=== PATIENT | female | born 1940 | race Caucasian/White ===

== ENCOUNTER 2017-06-28 18:48 | Emergency (ER) | payer MEDICARE, OTHER ==
[~2017-06-28] VITALS: Ht 152.4 cm; Wt 60.0 kg
[~2017-06-28 18:48] MED LIST: CALCTAB98 PO; CYMB30CA PO; FISH1000 PO; JANT5TAB2 PO; METO25 PO; NITR0.4S SL; POTA550T4 PO
[2017-06-28 18:59] VITALS: BP 134/63; PULSE 81; RESP 16; TEMP 98.5; O2SAT 96
[2017-06-28] MEDS ORDERED: GABA100C4 PO (19:35)
[2017-06-28] MEDS ORDERED: REST15CA PO (19:35)
[2017-06-28] MEDS ORDERED: META48.53 PO (19:35)
[2017-06-28] MEDS ORDERED: METO25TA3 PO (19:35)
[2017-06-28] MEDS ORDERED: MECL-62 PO (19:35)
[2017-06-28] MEDS ORDERED: SENN8.6T36 PO (19:35)
[2017-06-28] MEDS ORDERED: WARF-23 PO (19:35)
[2017-06-28] MEDS ORDERED: POLY17S PO (19:35)
[2017-06-28] MEDS ORDERED: MEMA28CA PO (19:35)
[2017-06-28] MEDS ORDERED: QUET5TAB PO (19:35)
[2017-06-28] MEDS ORDERED: NORC5TAB PO (19:35)
[2017-06-28] MEDS ORDERED: DULO1CAP2 PO (19:35)
[2017-06-28] MEDS ORDERED: NITR1SUB3 SL (19:35)
[2017-06-28 19:39] LABS: BASOPHIL % 0.7 % (0.0-2.0); EOSINOPHIL # 0.3 TH/MM3 (0-0.4); EOSINOPHIL % 5.1 % (0.0-4.0); HEMATOCRIT 39.7 % (35.0-46.0); HEMOGLOBIN 13.2 GM/DL (11.6-15.3); LYMPH % 38.2 % (9.0-44.0); LYMPHOCYTE # 2.5 TH/MM3 (1.0-4.8); MEAN CELL VOLUME 89.6 FL (80.0-100.0); MEAN CORPUSCULAR HEMOGLOBIN 29.9 PG (27.0-34.0); MEAN CORPUSCULAR HGB CONC 33.3 % (32.0-36.0); MEAN PLATELET VOLUME 9.2 FL (7.0-11.0); MONO % 10.1 % (0.0-8.0); MONOCYTE # 0.7 TH/MM3 (0-0.9); NEUT % 45.9 % (16.0-70.0); PLATELET COUNT 168 TH/MM3 (150-450); RED BLOOD COUNT 4.44 MIL/MM3 (4.00-5.30); RED CELL DISTRIBUTION WIDTH 14.2 % (11.6-17.2); WHITE BLOOD COUNT 6.6 TH/MM3 (4.0-11.0)
--- NOTE | 2017-06-28 19:44 | PD ---
HPI Chief Complaint: GI Complaint Time Seen by Provider: 19:09 Travel History International Travel<30 days: No Contact w/Intl Traveler<30days: No Traveled to known affect area: No History of Present Illness HPI Pt has pressure pain in rectal area for 4 days and thinks she has seen blood in her stool for the last 4 days .. pt reports having hard stool and it is very difficult to pass" my rectum is too small for the hard large rocks of stool. She is in a rehab for her back pain , 8 months ago she had a fall as per the sons who are bedside PFS Past Medical History Hx Anticoagulant Therapy: Yes (WARFARIN) Arthritis: Yes Asthma: No Atrial Fibrillation: Yes Autoimmune Disease: No Blood Disorders: No Depression: Yes Heart Rhythm Problems: Yes Cancer: Yes (left breast ) Cardiomyopathy: Yes Cardiovascular Problems: Yes High Cholesterol: Yes Chemotherapy: Yes Chest Pain: No Congestive Heart Failure: No COPD: Yes Cerebrovascular Accident: Yes (TIA) Diabetes: No Diminished Hearing: Yes Diverticulitis: Yes Endocrine: Yes Gastrointestinal Disorders: Yes (BLEEDING HEMORRHOIDS - GI SCOPE FOR POLOPS) GERD: No Glaucoma: No Genitourinary: No Headaches: Yes Hepatitis: No Hiatal Hernia: No Hypertension: Yes Immune Disorder: No Implanted Vascular Access Dvce: Yes Kidney Stones: No Musculoskeletal: No Neurologic: Yes (MENIERS SYNDROME, VERTIGO ) Psychiatric: Yes Reproductive: No Respiratory: Yes (copd) Immunizations Current: Yes Radiation Therapy: Yes Renal Failure: No Sleep Apnea: No Thyroid Disease: No Ulcer: No Influenza Vaccination: Yes Menopausal: Yes : 6 Para: 6 Ectopic : Yes Past Surgical History Abdominal Surgery: Yes AICD: Yes Appendectomy: Yes Body Medical Devices: PACEMAKER Cardiac Surgery: Yes (pacemaker medtronic duel 03/22/16) Cholecystectomy: Yes Ear Surgery: No Endocrine Surgery: No Eye Surgery: Yes (LEFT EYE) Genitourinary Surgery: No Gynecologic Surgery: Yes Hysterectomy: Yes Neurologic Surgery: Yes (VEIN STRIPPING BI LAT LOWER EXTREM.) Oral Surgery: Yes (TEETH EXTRACTED) Pacemaker: Yes Thoracic Surgery: No Tonsillectomy: Yes Valve Replacement: Yes (REPAIR 06/2013) Other Surgery: Yes (lymphectomy; pacemaker) Social History Alcohol Use: No Tobacco Use: No Substance Use: No Allergies-Medications (Allergen,Severity, Reaction): Coded Allergies: codeine (Unverified Allergy, Severe, HEADACHE, 06/28/17) iodine (Unverified Allergy, Severe, MERTHIOLATE = RASH, 06/28/17) morphine (Unverified Allergy, Severe, HEART RATE DROPS, 06/28/17) potassium iodide (Unverified Allergy, Severe, MERTHIOLATE = RASH, 06/28/17 ) povidone-iodine (Unverified Allergy, Severe, MERTHIOLATE = RASH, 06/28/17) sodium iodide (Unverified Allergy, Severe, MERTHIOLATE = RASH, 06/28/17) sodium iodide (Unverified Allergy, Severe, MERTHIOLATE = RASH, 06/28/17) *MDRO Multi-Drug Resistant Organism (Verified Allergy, Unknown, 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/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 carvedilol (Unverified Allergy, Unknown, 06/28/17) enalaprilat (Unverified Allergy, Unknown, 06/28/17) procaine (Unverified Allergy, Unknown, 06/28/17) MRI PRECAUTION (Verified Adverse Reaction, Severe, PACEMAKER 06/28/17 AW, 06/28/17) MEDTRONIC PACEMAKER 06/28/17 AW Sulfa (Sulfonamide Antibiotics) (Unverified Adverse Reaction, Severe, NAUSEA/VOMITING, 06/28/17) Uncoded Allergies: METHIOLATE (Allergy, Severe, RASH, 09/13/10) Reported Meds & Prescriptions Reported Meds & Active Scripts Active Reported [place] (Hydrocodone-Acetaminophen) 5 Mg-325 Mg Tab 1 Tab PO Q6H PRN Meclizine (Meclizine HCl) 25 Mg Tab 25 Mg PO TID PRN Nitroglycerin SL (Nitroglycerin) 0.4 Mg Subl 0.4 Mg SL DIRECTED PRN ONE TABLET UNDER THE TONGUE NEEDED FOR CHEST PAIN, MAY REPEAT EVERY FIVE MINUTES FOR A TOTAL OF 3 DOSES OR CALL 911 IF NO RELIEF Gabapentin 100 Mg Cap 100 Mg PO TID Duloxetine DR (Duloxetine HCl) 30 Mg Capdr 30 Mg PO BID Restoril (Temazepam) 15 Mg Cap 15 Mg PO HS PRN Quetiapine (Quetiapine Fumarate) 50 Mg Tab 50 Mg PO HS Metamucil Original Texture (Psyllium Hydrophilic Mucilloid) 3.4 Gram/7 Gram Pow 1 Scoop PO DAILY PRN 1 rounded TEASPOON in 8 oz of liquid at the first sign of irregularity. Warfarin 5 Mg Tab 5 Mg PO DAILY Metoprolol Tartrate 25 Mg Tab 12.5 Mg PO DAILY Namenda Xr (Memantine) 28 Mg Caper 28 Mg PO DAILY Senna-Tabs (Sennosides) 8.6 Mg Tab 8.6 Mg PO DAILY Polyethylene Glycol 3350 Powder (Polyethylene Glycol) 17 Gram Pow 17 Gm PO DAILY Review of Systems Except as stated in HPI: all other systems reviewed are Neg Gastrointestinal: Positive: Hematochezia (pressure in her lower back rectum 4 days), Changes in Bowel Habits Physical Exam Narrative GENERAL: non toxic normal vitals and not pale doesnt seem anemic SKIN: Warm and dry. HEAD: Atraumatic. Normocephalic. EYES: Pupils equal and round. No scleral icterus. No injection or drainage. ENT: No nasal bleeding or discharge. Mucous membranes pink and moist. NECK: Trachea midline. No JVD. CARDIOVASCULAR: Regular rate and rhythm. RESPIRATORY: No accessory muscle use. Clear to auscultation. Breath sounds equal bilaterally. GASTROINTESTINAL: Abdomen LLQ tenderness soft, , nondistended. Hepatic and splenic margins not palpable. MUSCULOSKELETAL:BACK PAIN L-Spine with palpation of L 2 area NEUROLOGICAL: Awake and alert. No obvious cranial nerve deficits. Motor grossly within normal limits. Five out of 5 muscle strength in the arms and legs. Normal speech. PSYCHIATRIC: Appropriate mood and affect; insight and judgment normal. RECTAL exam Brown stool minimal stool in her vault no hard stool found guiac postive. nontender exam Data Data Last Documented VS Vital Signs Date Time Temp Pulse Resp B/P (MAP) Pulse Ox O2 Delivery O2 Flow Rate FiO2 06/28/17 21:38 81 18 130/64 (86) 97 Room Air 06/28/17 18:59 98.5 Orders Orders Complete Blood Count With Diff (06/28/17 19:09) Comprehensive Metabolic Panel (06/28/17 19:09) Prothrombin Time / Inr (Pt) (06/28/17 19:09) Lipase (06/28/17 19:09) Ct Abd/Pel W/O Iv Contrast (06/28/17 ) Ct Lumb Spine W/O Contrast (06/28/17 ) Mri L Spine W/O Contrast (06/28/17 ) Ed Discharge Order (06/28/17 21:08) Labs Laboratory Tests Test 06/28/17 19:10 White Blood Count 6.6 TH/MM3 Red Blood Count 4.44 MIL/MM3 Hemoglobin 13.2 GM/DL Hematocrit 39.7 % Mean Corpuscular Volume 89.6 FL Mean Corpuscular Hemoglobin 29.9 PG Mean Corpuscular Hemoglobin Concent 33.3 % Red Cell Distribution Width 14.2 % Platelet Count 168 TH/MM3 Mean Platelet Volume 9.2 FL Neutrophils (%) (Auto) 45.9 % Lymphocytes (%) (Auto) 38.2 % Monocytes (%) (Auto) 10.1 % Eosinophils (%) (Auto) 5.1 % Basophils (%) (Auto) 0.7 % Neutrophils # (Auto) 3.0 TH/MM3 Lymphocytes # (Auto) 2.5 TH/MM3 Monocytes # (Auto) 0.7 TH/MM3 Eosinophils # (Auto) 0.3 TH/MM3 Basophils # (Auto) 0.0 TH/MM3 CBC Comment DIFF FINAL Differential Comment Prothrombin Time 20.6 SEC Prothromb Time International Ratio 2.0 RATIO Blood Urea Nitrogen 13 MG/DL Creatinine 0.85 MG/DL Random Glucose 125 MG/DL Total Protein 7.5 GM/DL Albumin 3.4 GM/DL Calcium Level 8.2 MG/DL Alkaline Phosphatase 85 U/L Aspartate Amino Transf (AST/SGOT) 34 U/L Alanine Aminotransferase (ALT/SGPT) 24 U/L Total Bilirubin 0.3 MG/DL Sodium Level 137 MEQ/L Potassium Level 4.2 MEQ/L Chloride Level 104 MEQ/L Carbon Dioxide Level 25.0 MEQ/L Anion Gap 8 MEQ/L Estimat Glomerular Filtration Rate 65 ML/MIN Lipase 552 U/L [facility] Medical Decision Making Medical Screen Exam Complete: Yes Emergency Medical Condition: Yes Differential Diagnosis hemorrhoids vs colitis diverticulosis , internal hemorrhoids , ulcer bleeding stomach, other Narrative Course CT of her lumbar spine shows ...L1 compression fracture with retropulsion into the spinal canal 20% of the canal is affected by the retropulsed bone. She has a pacemaker she cannot have an MRI she is on hydrocodone at the senior living for this. I told sons to continue follow-up with NS . I will give report of the MRI to them to show to the neurosurgeon at the senior living Diagnosis Primary Impression: Compressed spine fracture Qualified Codes: M48.50XA - Collapsed vertebra, not elsewhere classified, site unspecified, initial encounter for fracture Patient Instructions: General Instructions, Vertebral Compression Fracture (ED) Disposition: 01 DISCHARGE HOME Lowell Cash MD Jun 28, 2017 19:44
[2017-06-28 19:47] LABS: PROTHROMBIN TIME - PATIENT 20.6 SEC (9.8-11.6)
[2017-06-28 19:56] LABS: ALT (GPT) 24 U/L (10-53)
[2017-06-28 19:59] LABS: ALBUMIN 3.4 GM/DL (3.4-5.0); ALKALINE PHOSPHATASE 85 U/L (45-117); AST (GOT) 34 U/L (15-37); BLOOD UREA NITROGEN 13 MG/DL (7-18); CALCIUM 8.2 MG/DL (8.5-10.1); CHLORIDE 104 MEQ/L (98-107); CREATININE 0.85 MG/DL (0.50-1.00); GLOMERULAR FILTRATION RATE 65 ML/MIN (>89); GLUCOSE,RANDOM 125 MG/DL (74-106); LIPASE 552 U/L (73-393); SODIUM (NA) 137 MEQ/L (136-145); TOTAL BILIRUBIN ADULT 0.3 MG/DL (0.2-1.0); TOTAL PROTEIN 7.5 GM/DL (6.4-8.2)
--- NOTE | 2017-06-28 20:24 | RADRPT ---
EXAM DATE/TIME: 06/28/2017 19:58 [facility] COMPARISON: No previous studies available for comparison. INDICATIONS : Rectal bleeding for two days. ORAL CONTRAST: No oral contrast ingested. RADIATION DOSE: CTDIvol (mGy) MEDICAL HISTORY : Cardiovascular disease. Cerebrovascular disease. Carcinoma, breast. SURGICAL HISTORY : Appendectomy. Cholecystectomy.Hysterectomy. ENCOUNTER: Initial ACUITY: 2 days PAIN SCALE: 2/10 LOCATION: abdomen TECHNIQUE: Volumetric scanning of the abdomen and pelvis was performed. Using automated exposure control and ad justment of the mA and/or kV according to patient size, radiation dose was kept as low as reasonably achievable to obtain optimal diagnostic quality images. DICOM format image data is available electro nically for review and comparison. FINDINGS: Focal airspace disease noted in left lower lobe. No effusion. Cardiomegaly. No acute findings in the liver, adrenals, kidneys or pancreas. Previous cholecystectomy. No free fluid or free air. No bowel obstruction. Mild constipation. Colonic diverticulosis without di verticulitis. CONCLUSION: 1. Colonic diverticulosis without evidence for diverticulitis. 2. Postoperative cholecystectomy. No bowel obstruction, free air or free fluid. 3. Focal airspace disease left lower lobe. Cliff Adams MD on June 28, 2017 at 20:19 Board Certified Radiologist. This report was verified electronically.
--- NOTE | 2017-06-28 20:27 | RADRPT ---
EXAM DATE/TIME: 06/28/2017 19:58 [facility] COMPARISON: No previous studies available for comparison. INDICATIONS : Back pain for two days RADIATION DOSE: ; Reconstructed from previous dataset, no dose MEDICAL HISTORY : Cardiovascular disease. Cerebrovascular disease. Carcinoma, breast. SURGICAL HISTORY : Appendectomy. Cholecystectomy.Pacemaker. ENCOUNTER: Initial ACUITY: 2 days PAIN SCALE: 10/10 LOCATION: low back TECHNIQUE: Volumetric scanning of the lumbar spine was performed. Multiplanar reconstructions in the sagittal, coronal and oblique axial planes were performed. Using automated exposure control and adjustment of the mA and/or kV according to patient size, radiation dose was kept as low as reasonably achievable t o obtain optimal diagnostic quality images. DICOM format image data is available electronically for review and comparison. FINDINGS: There is a moderate compression fracture of L1 vertebral body with mild retropulsion superiorly compr omising about 20% canal diameter. No subluxation. No other fractures identified. No significant centr al canal stenosis within the lumbar spine. Bones appear osteopenic. CONCLUSION: 1. Moderate compression fracture of L1 with mild retropulsion. No subluxation. 2. Grade 1 anterolisthesis of L5 on S1, likely degenerative. Cliff Adams MD on June 28, 2017 at 20:22 Board Certified Radiologist. This report was verified electronically.
[2017-06-28 21:38] VITALS: BP 130/64; PULSE 81; RESP 18; O2SAT 97
== END 2017-06-28 21:39 | disposition home or self-care (01) ==
LOC: NEPE 18:48
DX: M48.56XA Collapsed vertebra, not elsewhere classified, lumbar region, initial encounter for fracture (principal); I10 Essential (primary) hypertension; I48.91 Unspecified atrial fibrillation; Z79.01 Long term (current) use of anticoagulants
CPT/HCPCS: 72131; 74176; 80053; 83690; 85025; 85610; 99285

== ENCOUNTER 2017-07-25 01:22 | Inpatient (IN) | payer MEDICARE, OTHER ==
[2017-07-25] VITALS (10 sets, daily range): BP systolic 111–136; BP diastolic 54–83; PULSE 59–65; RESP 16–26; TEMP 97.8–101.9; O2SAT 95–99
[~2017-07-25] VITALS: Ht 165.1 cm; Wt 65.0 kg
[~2017-07-25 01:22] MED LIST changes: -CALCTAB98 PO; -CYMB30CA PO; +DULO1CAP2 PO; -FISH1000 PO; +GABA100C4 PO; -JANT5TAB2 PO; +MECL-62 PO; +MEMA28CA PO; +META48.53 PO; -METO25 PO; +METO25TA3 PO; -NITR0.4S SL; +NITR1SUB3 SL; +NORC5TAB PO; +POLY17S PO; -POTA550T4 PO; +QUET5TAB PO; +REST15CA PO; +SENN8.6T36 PO; +WARF-23 PO
--- NOTE | 2017-07-25 01:43 | PD ---
HPI Chief Complaint: Altered Mental Status Time Seen by Provider: 01:34 Travel History International Travel<30 days: No Contact w/Intl Traveler<30days: No Traveled to known affect area: No History of Present Illness HPI The patient is a 76 year old female who presents to the [facility] emergency department with a history of altered mentation noted by her penitentiary prior to arrival. The patient was last seen normal around 9:30 PM. The patient received her usual dose of [place] and Restoril at that time. The patient 's vital signs were all within normal limits at that time with an O2 saturation on room air of 96%. When they went to check on the patient at approximately 12: 30 AM the patient had O2 saturations of 88% and was difficult to arouse. The patient reportedly has a history of dementia and is usually oriented to person only. The patient was placed on 3 L nasal cannula O2. When ambulance services arrived the patient's O2 saturations had improved to 98%. They report that they did check capnography on the patient and her CO2 was 36. The patient is able to follow commands when she is awakened, however she is extremely drowsy with upper airway congested sounds noted on exam. No other history is able to be obtained from the patient. The patient's history is obtained from reviewing the electronic medical record and the penitentiary record. The patient's blood sugar prior to arrival by ambulance services was noted to be 93. The patient's family on arrival reports that she has had rhinorrhea, cough, congestion over the last few days. PFS Past Medical History Narrative Medical The patient's past medical history is significant for coronary artery disease, atrial fibrillation chronically anticoagulated on Coumadin, history of AICD and pacemaker placement, history of hypothyroid disorder, depression, acid reflux, migraine headaches, hypertension, prior history of cerebrovascular accident, history of dementia. Hx Anticoagulant Therapy: Yes (WARFARIN) Arthritis: Yes Asthma: No Atrial Fibrillation: Yes Autoimmune Disease: No Blood Disorders: No Depression: Yes Heart Rhythm Problems: Yes Cancer: Yes (left breast ) Cardiomyopathy: Yes Cardiovascular Problems: Yes High Cholesterol: Yes Chemotherapy: Yes Chest Pain: No Congestive Heart Failure: No COPD: Yes Cerebrovascular Accident: Yes (TIA) Diabetes: No Diminished Hearing: Yes Diverticulitis: Yes Endocrine: Yes Gastrointestinal Disorders: Yes (BLEEDING HEMORRHOIDS - GI SCOPE FOR POLOPS) GERD: No Glaucoma: No Genitourinary: No Headaches: Yes Hepatitis: No Hiatal Hernia: No Hypertension: Yes Immune Disorder: No Implanted Vascular Access Dvce: Yes Kidney Stones: No Musculoskeletal: No Neurologic: Yes (MENIERS SYNDROME, VERTIGO ) Psychiatric: Yes Reproductive: No Respiratory: Yes (copd) Immunizations Current: Yes Radiation Therapy: Yes Renal Failure: No Sleep Apnea: No Thyroid Disease: No Ulcer: No Menopausal: Yes : 6 Para: 6 Ectopic : Yes Past Surgical History Narrative Surgical The patient's past surgical history is significant for mitral valve replacement , pacemaker placement, AICD placement, hysterectomy, bilateral vein stripping, left eye surgery, cholecystectomy. Abdominal Surgery: Yes AICD: Yes Appendectomy: Yes Body Medical Devices: PACEMAKER Cardiac Surgery: Yes (pacemaker medtronic duel 03/22/16) Cholecystectomy: Yes Ear Surgery: No Endocrine Surgery: No Eye Surgery: Yes (LEFT EYE) Genitourinary Surgery: No Gynecologic Surgery: Yes Hysterectomy: Yes Neurologic Surgery: Yes (VEIN STRIPPING BI LAT LOWER EXTREM.) Oral Surgery: Yes (TEETH EXTRACTED) Pacemaker: Yes Thoracic Surgery: No Tonsillectomy: Yes Valve Replacement: Yes (REPAIR 06/2013) Other Surgery: Yes (lymphectomy; pacemaker) Social History Alcohol Use: No Tobacco Use: No Substance Use: No Allergies-Medications (Allergen,Severity, Reaction): Coded Allergies: codeine (Unverified Allergy, Severe, HEADACHE, 07/25/17) iodine (Unverified Allergy, Severe, MERTHIOLATE = RASH, 07/25/17) morphine (Unverified Allergy, Severe, HEART RATE DROPS, 07/25/17) potassium iodide (Unverified Allergy, Severe, MERTHIOLATE = RASH, 07/25/17) povidone-iodine (Unverified Allergy, Severe, MERTHIOLATE = RASH, 07/25/17) sodium iodide (Unverified Allergy, Severe, MERTHIOLATE = RASH, 07/25/17) sodium iodide (Unverified Allergy, Severe, MERTHIOLATE = RASH, 07/25/17) *MDRO Multi-Drug Resistant Organism (Verified Allergy, Unknown, 07/25/17) MRSA carvedilol (Unverified Allergy, Unknown, 07/25/17) enalaprilat (Unverified Allergy, Unknown, 07/25/17) procaine (Unverified Allergy, Unknown, 07/25/17) MRI PRECAUTION (Verified Adverse Reaction, Severe, PACEMAKER 06/28/17 AW, 07/25/17) MEDTRONIC PACEMAKER 06/28/17 AW Sulfa (Sulfonamide Antibiotics) (Unverified Adverse Reaction, Severe, NAUSEA/VOMITING, 07/25/17) Uncoded Allergies: METHIOLATE (Allergy, Severe, RASH, 09/13/10) Reported Meds & Prescriptions Reported Meds & Active Scripts Active Reported [place] (Hydrocodone-Acetaminophen) 5 Mg-325 Mg Tab 1 Tab PO Q6H PRN Meclizine (Meclizine HCl) 25 Mg Tab 25 Mg PO TID PRN Nitroglycerin SL (Nitroglycerin) 0.4 Mg Subl 0.4 Mg SL DIRECTED PRN ONE TABLET UNDER THE TONGUE NEEDED FOR CHEST PAIN, MAY REPEAT EVERY FIVE MINUTES FOR A TOTAL OF 3 DOSES OR CALL 911 IF NO RELIEF Gabapentin 100 Mg Cap 100 Mg PO TID Duloxetine DR (Duloxetine HCl) 30 Mg Capdr 30 Mg PO BID Restoril (Temazepam) 15 Mg Cap 15 Mg PO HS PRN Quetiapine (Quetiapine Fumarate) 50 Mg Tab 50 Mg PO HS Metamucil Original Texture (Psyllium Hydrophilic Mucilloid) 3.4 Gram/7 Gram Pow 1 Scoop PO DAILY PRN 1 rounded TEASPOON in 8 oz of liquid at the first sign of irregularity. Warfarin 5 Mg Tab 5 Mg PO DAILY Metoprolol Tartrate 25 Mg Tab 12.5 Mg PO DAILY Namenda Xr (Memantine) 28 Mg Caper 28 Mg PO DAILY Senna-Tabs (Sennosides) 8.6 Mg Tab 8.6 Mg PO DAILY Polyethylene Glycol 3350 Powder (Polyethylene Glycol) 17 Gram Pow 17 Gm PO DAILY Review of Systems ROS Limitations: Altered Mental Status, Poor Historian HENT: Positive: Rhinorrhea, Congestion Respiratory: Positive: Cough Neurologic: Positive: Change in Mentation Physical Exam Narrative General: The patient is well-developed well-nourished female, sleeping soundly on arrival , otherwise in no acute distress. Head and Neck exam: Head is normocephalic atraumatic. Eyes: Pupils are 2 mm and reactive to light, extra ocular motion testing is unable to be accomplished in this patient who is not able to follow complex commands. Nose: Midline septum with pink mucous membranes Mouth: Dentition unremarkable. Moist mucus membranes. Posterior oropharynx is not erythematous. No tonsillar hypertrophy. Uvula midline. Airway patent. Neck: No palpable lymphadenopathy. No nuchal rigidity. No thyromegaly. Cardiovascular: Regular rate and rhythm without murmurs, gallops, or rubs. Lungs: The patient has a significant amount of congestion in the upper airway with upper airway transmission and scattered rhonchi audible in bilateral lung pineda with occasional productive sounding cough. Abdomen: Soft, without tenderness to palpation in all 4 quadrants of the abdomen. No guarding, rebound, or rigidity. Normal bowel sounds are audible. No tenderness on palpation of McBurney's point. Negative Mccormick sign. Extremities: No clubbing, cyanosis, or edema. 2+ pulses in all 4 extremities. No calf tenderness on palpation. Back: No costovertebral angle tenderness to palpation. Neurologic Exam: The patient is extremely drowsy on examination, however she is able to be awakened for a few seconds at a time with tactile stimulation. The patient is able to follow commands and squeeze with her hands bilaterally. The patient is also able to move both feet with stimulation. The patient has no evidence of facial asymmetry. A formal neurologic examination is limited to this based on the patient's level of sedation. Skin Exam: No rash noted. Intact skin that is warm and dry. Data Data Last Documented VS Vital Signs Date Time Temp Pulse Resp B/P (MAP) Pulse Ox O2 Delivery O2 Flow Rate FiO2 07/25/17 01:35 94 07/25/17 01:33 60 18 120/56 (77) Room Air 07/25/17 01:30 98.1 Orders Orders Electrocardiogram (07/25/17 01:34) Complete Blood Count With Diff (07/25/17 01:34) Comprehensive Metabolic Panel (07/25/17 01:34) Creatine Kinase (Cpk) (07/25/17 01:34) Ckmb (Isoenzyme) Profile (07/25/17:34) Troponin I (07/25/17:34) B-Type Natriuretic Peptide (07/25/17 01:34) Prothrombin Time / Inr (Pt) (07/25/17:34) Act Partial Throm Time (Ptt) (07/25/17:34) C-Reactive Protein (Crp) (07/25/17 01:34) Lipase (07/25/17 01:34) Urinalysis - C+S If Indicated (07/25/17 01:34) Cath For Specimen (07/25/17 01:34) Magnesium (Mg) (07/25/17 01:34) Ammonia (07/25/17 01:34) Thyroid Stimulating Hormone (07/25/17 01:34) Chest, Single Ap (07/25/17 01:34) Ct Brain W/O Iv Contrast(Rout) (07/25/17 01:34) Iv Access Insert/Monitor (07/25/17 01:34) Ecg Monitoring (07/25/17 01:34) Oximetry (07/25/17 01:34) Drug Screen, Random Urine (07/25/17 01:34) Alcohol (Ethanol) (07/25/17 01:34) Urine Culture (07/25/17 01:56) Influenzae A/B Antigen (07/25/17 03:43) Place In Observation (07/25/17 ) Vital Signs (Adult) Q4H (07/25/17 04:07) Neuro Checks Q4H (07/25/17 04:07) Activity Oob With Assistance (07/25/17 04:07) Residential Treatment Staff / Telemetry .CONTINUOUS (07/25/17 04:07) Diet Npo (07/25/17 Breakfast) Sodium Chloride 0.9% Flush (Ns Flush) (07/25/17 04:15) Sodium Chloride 0.9% Flush (Ns Flush) (07/25/17 09:00) Basic Metabolic Panel (Bmp) (07/26/17 06:00) Complete Blood Count With Diff (07/26/17 06:00) Resp Oxygen Steve C Titrat 1-4 L (07/25/17 ) Pt Request For Service (07/25/17 04:07) Case Management Consult (07/25/17 04:07) Naloxone Inj (Narcan Inj) (07/25/17 04:15) Speech Therapy Consult-Eval/Tx (07/25/17 04:07) Ct Thorax/ Chest Wo Iv Contras (07/25/17 ) Admit Order (Ed Use Only) (07/25/17 04:17) Labs Laboratory Tests Test 07/25/17 01:46 07/25/17 01:56 White Blood Count 5.1 TH/MM3 Red Blood Count 4.25 MIL/MM3 Hemoglobin 12.8 GM/DL Hematocrit 38.2 % Mean Corpuscular Volume 90.0 FL Mean Corpuscular Hemoglobin 30.2 PG Mean Corpuscular Hemoglobin Concent 33.6 % Red Cell Distribution Width 13.2 % Platelet Count 101 TH/MM3 Mean Platelet Volume 9.2 FL Neutrophils (%) (Auto) 45.9 % Lymphocytes (%) (Auto) 45.7 % Monocytes (%) (Auto) 7.4 % Eosinophils (%) (Auto) 0.8 % Basophils (%) (Auto) 0.2 % Neutrophils # (Auto) 2.3 TH/MM3 Lymphocytes # (Auto) 2.3 TH/MM3 Monocytes # (Auto) 0.4 TH/MM3 Eosinophils # (Auto) 0.0 TH/MM3 Basophils # (Auto) 0.0 TH/MM3 CBC Comment DIFF FINAL Differential Comment Prothrombin Time 37.3 SEC Prothromb Time International Ratio 3.7 RATIO Activated Partial Thromboplast Time 52.1 SEC Blood Urea Nitrogen 11 MG/DL Creatinine 0.70 MG/DL Random Glucose 92 MG/DL Total Protein 6.5 GM/DL Albumin 3.0 GM/DL Calcium Level 7.9 MG/DL Magnesium Level 2.1 MG/DL Alkaline Phosphatase 165 U/L Aspartate Amino Transf (AST/SGOT) 256 U/L Alanine Aminotransferase (ALT/SGPT) 104 U/L Total Bilirubin 1.1 MG/DL Sodium Level 139 MEQ/L Potassium Level 3.5 MEQ/L Chloride Level 104 MEQ/L Carbon Dioxide Level 28.3 MEQ/L Anion Gap 7 MEQ/L Estimat Glomerular Filtration Rate 82 ML/MIN Ammonia 11 MCMOL/L Total Creatine Kinase 92 U/L Troponin I LESS THAN 0.02 NG/ML C-Reactive Protein 6.81 MG/DL B-Type Natriuretic Peptide 98 PG/ML Lipase 172 U/L Thyroid Stimulating Hormone 3rd Gen 0.917 uIU/ML Ethyl Alcohol Level LESS THAN 3 MG/DL Urine Color YELLOW Urine Turbidity CLEAR Urine pH 6.0 Urine Specific Serena 1.020 Urine Protein TRACE mg/dL Urine Glucose (UA) NEG mg/dL Urine Ketones TRACE mg/dL Urine Occult Blood NEG Urine Nitrite POS Urine Bilirubin NEG Urine Urobilinogen LESS THAN 2.0 MG/DL Urine Leukocyte Esterase SMALL Urine RBC 3 /hpf Urine WBC 5 /hpf Urine Bacteria OCC /hpf Urine Hyaline Casts 16 /lpf Urine Mucus FEW /lpf Microscopic Urinalysis Comment CULTURE INDICATED Urine Opiates Screen POS Urine Barbiturates Screen NEG Urine Amphetamines Screen NEG Urine Benzodiazepines Screen NEG Urine Cocaine Screen NEG Urine Cannabinoids Screen NEG MDM Medical Decision Making Medical Screen Exam Complete: Yes Emergency Medical Condition: Yes Medical Record Reviewed: Yes Interpretation(s) Last Impressions Head CT 07/25/17133 Signed Impressions: Service Date/Time: Tuesday, July 25, 2017 02:03 - CONCLUSION: 1. No evidence of acute intracranial pathology. Chronic ischemic changes as above. 2. Sinus disease as above Ezequiel Ordoñez MD Chest X-Ray 07/25/17133 Signed Impressions: Service Date/Time: Tuesday, July 25, 2017 02:01 - CONCLUSION: 1. Cardiomegaly. No acute pulmonary disease. Ezequiel Ordoñez MD Differential Diagnosis Altered mentation related to medication side effects and sedation, versus intracranial abnormality, versus sepsis related encephalopathy, versus hypercapnia, versus aspiration, versus influenza Narrative Course During the course of the patients emergency department visit, the patient was placed on a bus steward with oximetry and frequent blood pressure monitoring. The patient had IV access obtained and blood work sent for analysis. The patient had an EKG done on arrival that shows an electronic ventricular paced rhythm heart rate of 60, no other acute abnormality. The patient was initially provided normal saline at 250 milliliters bolus 1. The patients laboratory studies were reviewed and remarkable for a white count of 5.1, hemoglobin 12.8, platelets 101 with 45.7 and lymphocytes, CMP is remarkable for a GFR of 82, total bilirubin 1.1, AST 256, ALT 104, alkaline phosphatase 165 with an ammonia level of the left, CPK 92, troponin I less than 0.02, C-reactive protein is 6.81, albumin 3.0, lipase 172, TSH 0.917, BNP is 98 , INR 3.7, urinalysis shows trace ketones positive nitrite and leukocyte Estrace occasional bacteria, culture indicated. The patient's liver enzyme elevation is noted to be new compared to her prior liver function tests in June 2017. According to the record the patient has had a cholecystectomy. Radiology studies were reviewed and remarkable for a chest x-ray that shows cardiomegaly, no acute pulmonary disease. CT scan of the brain shows no evidence of acute intracranial pathology, chronic ischemic changes, sinus disease. The patients results were discussed with the patient, including the plan of care. I explained that further testing and/ or monitoring is indicated based on the patients history, examination, and/ or laboratory findings. Therefore, I recommended admission for additional evaluation. The patient expressed understanding and was agreeable with this plan. The patient was admitted to the hospital in guarded condition and sent to a bed under the care of the [facility] service. Physician Communication Physician Communication The patient's case including history, pertinent physical examination findings, and laboratory studies were discussed with Dr. Ferrari. It was agreed that the patient would be admitted to the [facility] service. Diagnosis Primary Impression: Altered mental status Qualified Codes: R40.0 - Somnolence Additional Impression: Urinary tract infection Qualified Codes: N39.0 - Urinary tract infection, site not specified Admitting Information Admitting Physician Requests: Gina Hernandez MD Jul 25, 2017 01:43
[2017-07-25 02:08] LABS: AUTOMATED NEUTROPHIL # 2.3 TH/MM3 (1.8-7.7); BASOPHIL % 0.2 % (0.0-2.0); EOSINOPHIL % 0.8 % (0.0-4.0); HEMATOCRIT 38.2 % (35.0-46.0); HEMOGLOBIN 12.8 GM/DL (11.6-15.3); LYMPH % 45.7 % (9.0-44.0); LYMPHOCYTE # 2.3 TH/MM3 (1.0-4.8); MEAN CORPUSCULAR HEMOGLOBIN 30.2 PG (27.0-34.0); MEAN CORPUSCULAR HGB CONC 33.6 % (32.0-36.0); MEAN PLATELET VOLUME 9.2 FL (7.0-11.0); MONO % 7.4 % (0.0-8.0); MONOCYTE # 0.4 TH/MM3 (0-0.9); NEUT % 45.9 % (16.0-70.0); PLATELET COUNT 101 TH/MM3 (150-450); RED BLOOD COUNT 4.25 MIL/MM3 (4.00-5.30); RED CELL DISTRIBUTION WIDTH 13.2 % (11.6-17.2); WHITE BLOOD COUNT 5.1 TH/MM3 (4.0-11.0)
[2017-07-25 02:11] LABS: BACTERIA, URINE OCC /hpf; BILIRUBIN, URINE NEG (NEG); BLOOD, URINE NEG (NEG); GLUCOSE,URINE NEG (NEG); HYALINE CAST, URINE 16 /lpf (RARE); KETONE, URINE TRACE mg/dL (NEG); MUCUS URINE FEW /lpf (OCC); NITRITE,URINE POS (NEG); URINE COLOR YELLOW (YELLW/STRAW); URINE LEUKOCYTE ESTERASE SMALL (NEG)
[2017-07-25 02:22] LABS: INTERNATIONAL NORMALIZED RATIO 3.7 RATIO; PROTHROMBIN TIME - PATIENT 37.3 SEC (9.8-11.6)
[2017-07-25 02:25] LABS: ALT (GPT) 104 U/L (10-53); AST (GOT) 256 U/L (15-37); BICARBONATE 28.3 MEQ/L (21.0-32.0); BLOOD UREA NITROGEN 11 MG/DL (7-18); CALCIUM 7.9 MG/DL (8.5-10.1); CHLORIDE 104 MEQ/L (98-107); GLOMERULAR FILTRATION RATE 82 ML/MIN (>89); GLUCOSE,RANDOM 92 MG/DL (74-106); LIPASE 172 U/L (73-393); MAGNESIUM 2.1 MG/DL (1.5-2.5); SODIUM (NA) 139 MEQ/L (136-145)
[2017-07-25 02:34] LABS: ALKALINE PHOSPHATASE 165 U/L (45-117); C-REACTIVE PROTEIN 6.81 MG/DL (0.00-0.30); TOTAL BILIRUBIN ADULT 1.1 MG/DL (0.2-1.0); TOTAL PROTEIN 6.5 GM/DL (6.4-8.2); TROPONIN I LESS THAN 0.02 NG/ML (0.02-0.05)
--- NOTE | 2017-07-25 02:41 | RADRPT ---
EXAM DATE/TIME: 07/25/2017 02:01 [facility] COMPARISON: CHEST SINGLE AP, March 27, 2016, 21:44. INDICATIONS : Cough. MEDICAL HISTORY : Cardiovascular disease. Cerebrovascular disease. Carcinoma, breast SURGICAL HISTORY : CABG. Pacemaker. Appendectomy. Cholecystectomy.Hysterectomy ENCOUNTER: Initial ACUITY: 1 day PAIN SCORE: 0/10 LOCATION: Bilateral chest FINDINGS: The cardiac silhouette is normal in transverse diameter. Median sternotomy wires are present. A prost hetic mitral valve is in place. A defibrillator device is in place via a right sided approach. The shelly ngs are free of acute parenchymal opacity. No effusions are identified. CONCLUSION: 1. Cardiomegaly. No acute pulmonary disease. Ezequiel Ordoñez MD on July 25, 2017 at 2:39 Board Certified Radiologist. This report was verified electronically.
--- NOTE | 2017-07-25 02:45 | RADRPT ---
EXAM DATE/TIME: 07/25/2017 02:03 [facility] COMPARISON: CT BRAIN W/O CONTRAST, January 01, 2016, 15:10. INDICATIONS : Altered mental status. RADIATION DOSE: 69.15 CTDIvol (mGy) MEDICAL HISTORY : Hypertension. Carcinoma, breast. Chronic obstructive pulmonary disease.TIA. SURGICAL HISTORY : Pacemaker. ENCOUNTER: Initial ACUITY: 1 day PAIN SCALE: 0/10 LOCATION: cranial TECHNIQUE: Multiple contiguous axial images were obtained of the head. Using automated exposure control and adj ustment of the mA and/or kV according to patient size, radiation dose was kept as low as reasonably a chievable to obtain optimal diagnostic quality images. DICOM format image data is available electro nically for review and comparison. FINDINGS: Noncontrast axial head CT demonstrates the ventricles to be normal in size and configuration with a n ormal sulcal pattern. No acute intracranial hemorrhage, acute cortical infarction, mass or midline sh ift is seen. There is periventricular hypodensity compatible with chronic ischemic change slightly mo re than expected for patient this age. Air-fluid levels in the sphenoid sinus and left maxillary sinu s. Posterior fossa structures are unremarkable. Bone windows are unremarkable. CONCLUSION: 1. No evidence of acute intracranial pathology. Chronic ischemic changes as above. 2. Sinus disease as above Ezequiel Ordoñez MD on July 25, 2017 at 2:41 Board Certified Radiologist. This report was verified electronically.
[2017-07-25] MEDS ORDERED: NALOXONE HCL 0.4 MG/ML AMP IV PUSH PRN (04:15)
[2017-07-25] MEDS ORDERED: SODIUM CHLORIDE 0.9% FLUSH 10 ML FLUSH IV FLUSH PRN (04:15)
--- NOTE | 2017-07-25 05:00 | RADRPT ---
EXAM DATE/TIME: 07/25/2017 04:40 [facility] COMPARISON: No previous studies available for comparison. INDICATIONS : Short of breath. RADIATION DOSE: 13.39 CTDIvol (mGy) MEDICAL HISTORY : Cardiovascular disease. Hypertension. Chronic obstructive pulmonary disease. SURGICAL HISTORY : Pacemaker. ENCOUNTER: Initial ACUITY: 1 day PAIN SCALE: 4/10 LOCATION: Bilateral chest TECHNIQUE: Volumetric scanning of the chest was performed. Using automated exposure control and adjustment of t he mA and/or kV according to patient size, radiation dose was kept as low as reasonably achievable to obtain optimal diagnostic quality images. DICOM format image data is available electronically for r eview and comparison. Follow-up recommendations for detected pulmonary nodules are based at a minimum on nodule size and pa tient risk factors according to Fleischner Society Guidelines. FINDINGS: There is bibasilar atelectasis and bronchiectasis. There is lobular soft tissue density in the right hilum and malignancy is not excluded. Overall this measures 5.4 x 2.3 CM. PET/CT scan is recommended to further evaluation if clinically indicated. Bronchoscopy could be performed for further evaluation if clinically indicated. Coronary artery calcifications are present. No abnormally enlarged lymph no dimitry are identified. A prosthetic mitral valve is in place. CONCLUSION: 1. Possible right hilar mass. PET/CT and. bronchoscopy could be considered. 2. Bronchiectasis in both bases with bibasilar alveolar opacity inflammatory or infectious Ezequiel Ordoñez MD on July 25, 2017 at 4:53 Board Certified Radiologist. This report was verified electronically.
[2017-07-25] MEDS ORDERED: CEFEPIME INJ 2,000 MG in SODIUM CHLORIDE 0.9% INJ 100 ML IV STA (06:11)
[2017-07-25] MEDS ORDERED: AZTREONAM INJ 2,000 MG in SODIUM CHLORIDE 0.9% INJ 100 ML IV STA (06:11)
[2017-07-25] MEDS ORDERED: metroNIDAZOLE 500 MG INJ 100 ML IV STA (06:11)
[2017-07-25] MEDS: SODIUM CHLORIDE 0.9% FLUSH 10 ML FLUSH IV FLUSH SCH ×2 (09:03→22:13)
[2017-07-25] MEDS ORDERED: Vancomycin Consult Pharmacy 1 EA OTHER SCH (10:00)
[2017-07-25] MEDS ORDERED: VANCOMYCIN INJ 1,000 MG in SODIUM CHLOR 0.9% 250 ML INJ 250 ML IV ONE (10:00)
--- NOTE | 2017-07-25 10:11 | HHI.HP ---
HPI Service [facility] Primary Care Physician Unknown Admission Diagnosis AMS, UTI Diagnoses: Chief Complaint: Change in mental status Travel History International Travel<30 Days: No Contact w/Intl Traveler <30 Da: No Traveled to Known Affected Are: No History of Present Illness 76 years old female brought to the ED from care home with change of mental status, on her way to the hospital patient had O2 desaturation to 88% , and ED CT of the chest showed right hilar mass with by basilar infiltrate, when I saw the patient she was about to have her 2-D echo, open eyes, she was able to mention her name but she thought we were in 2003 , she was extremely poor historian, she was able to tell me that she's been having cough and she had pain in her teeth but otherwise no further information was able to be obtained from her. Most of the history was obtained from the medical records in EMR. Also in ED she was found to have increased AST and ALT no jaundice UA was positive for eye trait and leukocytes esterase, WBC 5 Review of Systems ROS Limitations: Poor Historian "pain in my teeth "" Past Family Social History Past Medical History The patient's past medical history is significant for coronary artery disease, atrial fibrillation chronically anticoagulated on Coumadin, history of AICD and pacemaker placement, history of hypothyroid disorder, depression, acid reflux, migraine headaches, hypertension, prior history of cerebrovascular accident, history of dementia. Past Surgical History The patient's past surgical history is significant for mitral valve replacement , pacemaker placement, AICD placement, hysterectomy, bilateral vein stripping, left eye surgery, cholecystectomy. Allergies: Coded Allergies: codeine (Unverified Allergy, Severe, HEADACHE, 07/25/17) iodine (Unverified Allergy, Severe, MERTHIOLATE = RASH, 07/25/17) morphine (Unverified Allergy, Severe, HEART RATE DROPS, 07/25/17) potassium iodide (Unverified Allergy, Severe, MERTHIOLATE = RASH, 07/25/17) povidone-iodine (Unverified Allergy, Severe, MERTHIOLATE = RASH, 07/25/17) sodium iodide (Unverified Allergy, Severe, MERTHIOLATE = RASH, 07/25/17) sodium iodide (Unverified Allergy, Severe, MERTHIOLATE = RASH, 07/25/17) *MDRO Multi-Drug Resistant Organism (Verified Allergy, Unknown, 07/25/17) MRSA carvedilol (Unverified Allergy, Unknown, 07/25/17) enalaprilat (Unverified Allergy, Unknown, 07/25/17) procaine (Unverified Allergy, Unknown, 07/25/17) MRI PRECAUTION (Verified Adverse Reaction, Severe, PACEMAKER 06/28/17 AW, 07/25/17) MEDTRONIC PACEMAKER 06/28/17 AW Sulfa (Sulfonamide Antibiotics) (Unverified Adverse Reaction, Severe, NAUSEA/VOMITING, 07/25/17) Uncoded Allergies: METHIOLATE (Allergy, Severe, RASH, 09/13/10) Family History Unobtainable Social History Per the record no tobacco alcohol or illicit drug abuse Physical Exam Vital Signs Vital Signs Date Time Temp Pulse Resp B/P (MAP) Pulse Ox O2 Delivery O2 Flow Rate FiO2 07/25/17 08:06 Nasal Cannula 2.00 07/25/17 07:47 63 22 136/63 (87) 98 Nasal Cannula 2.00 07/25/17 06:33 62 18 129/59 (82) 96 Room Air 07/25/17 06:11 Nasal Cannula 2.00 07/25/17 05:30 59 18 121/59 (79) 96 Nasal Cannula 2.00 07/25/17 05:30 96 Nasal Cannula 2.00 07/25/17 01:35 94 07/25/17 01:33 60 18 120/56 (77) 95 Room Air 07/25/17 01:30 98.1 16 95 Physical Exam GENERAL: This is a frail elderly lady, in no apparent distress. SKIN: No rashes, warm and dry HEAD: Atraumatic. Normocephalic. EYES: Pupils equal round and reactive. Extraocular motions intact. No scleral icterus. ENT: Nose without bleeding, or drainage, Airway patent. NECK: Trachea midline. Supple CARDIOVASCULAR: Regular rate and rhythm without murmurs, gallops, or rubs. RESPIRATORY: Multiple crackles bilaterally with positive wheezes GASTROINTESTINAL: Abdomen soft, non-tender, nondistended. Positive bowel sounds MUSCULOSKELETAL: Extremities without clubbing, cyanosis, or edema. Pedal pulses appreciated NEUROLOGICAL: Awake and alert not oriented to time or place. Moves all extremity. Normal speech.no focal neurological deficit Laboratory Laboratory Tests Test 07/25/17 01:46 07/25/17 01:56 White Blood Count 5.1 Red Blood Count 4.25 Hemoglobin 12.8 Hematocrit 38.2 Mean Corpuscular Volume 90.0 Mean Corpuscular Hemoglobin 30.2 Mean Corpuscular Hemoglobin Concent 33.6 Red Cell Distribution Width 13.2 Platelet Count 101 Mean Platelet Volume 9.2 Neutrophils (%) (Auto) 45.9 Lymphocytes (%) (Auto) 45.7 Monocytes (%) (Auto) 7.4 Eosinophils (%) (Auto) 0.8 Basophils (%) (Auto) 0.2 Neutrophils # (Auto) 2.3 Lymphocytes # (Auto) 2.3 Monocytes # (Auto) 0.4 Eosinophils # (Auto) 0.0 Basophils # (Auto) 0.0 CBC Comment DIFF FINAL Differential Comment Prothrombin Time 37.3 Prothromb Time International Ratio 3.7 Activated Partial Thromboplast Time 52.1 Blood Urea Nitrogen 11 Creatinine 0.70 Random Glucose 92 Total Protein 6.5 Albumin 3.0 Calcium Level 7.9 Magnesium Level 2.1 Alkaline Phosphatase 165 Aspartate Amino Transf (AST/SGOT) 256 Alanine Aminotransferase (ALT/SGPT) 104 Total Bilirubin 1.1 Sodium Level 139 Potassium Level 3.5 Chloride Level 104 Carbon Dioxide Level 28.3 Anion Gap 7 Estimat Glomerular Filtration Rate 82 Ammonia 11 Total Creatine Kinase 92 Troponin I LESS THAN 0.02 C-Reactive Protein 6.81 B-Type Natriuretic Peptide 98 Lipase 172 Thyroid Stimulating Hormone 3rd Gen 0.917 Ethyl Alcohol Level LESS THAN 3 Urine Color YELLOW Urine Turbidity CLEAR Urine pH 6.0 Urine Specific [place] 1.020 Urine Protein TRACE Urine Glucose (UA) NEG Urine Ketones TRACE Urine Occult Blood NEG Urine Nitrite POS Urine Bilirubin NEG Urine Urobilinogen LESS THAN 2.0 Urine Leukocyte Esterase SMALL Urine RBC 3 Urine WBC 5 Urine Bacteria OCC Urine Hyaline Casts 16 Urine Mucus FEW Microscopic Urinalysis Comment CULTURE INDICATED Urine Opiates Screen POS Urine Barbiturates Screen NEG Urine Amphetamines Screen NEG Urine Benzodiazepines Screen NEG Urine Cocaine Screen NEG Urine Cannabinoids Screen NEG Date/Time Source Procedure Growth Status 07/25/17 04:08 Nasal Aspirate Influenza Types A,B Antigen (VONDA) - Final NEGATIVE FOR FLU A AND B ANTIGEN.... Complete 07/25/17 01:56 Urine Random Urine Urine Culture Pending Received Result Diagram: 07/25/17 0146 07/25/17145 Imaging Last Impressions Head CT 07/25/17133 Signed Impressions: Service Date/Time: Tuesday, July 25, 2017 02:03 - CONCLUSION: 1. No evidence of acute intracranial pathology. Chronic ischemic changes as above. 2. Sinus disease as above Ezequiel Ordoñez MD Chest X-Ray 07/25/17133 Signed Impressions: Service Date/Time: Tuesday, July 25, 2017 02:01 - CONCLUSION: 1. Cardiomegaly. No acute pulmonary disease. Ezequiel Ordoñez MD Chest CT 07/25/17 0000 Signed Impressions: Service Date/Time: Tuesday, July 25, 2017 04:40 - CONCLUSION: 1. Possible right hilar mass. PET/CT and. bronchoscopy could be considered. 2. Bronchiectasis in both bases with bibasilar alveolar opacity inflammatory or infectious Ezequiel Ordoñez MD [place] VTE Risk Assessment Caprini VTE Risk Assessment: Mod/High Risk (score >= 2) Caprini Risk Assessment Model Point Value = 1 Point Value = 2 Point Value = 3 Point Value = 5 Age 41-60 Minor surgery BMI > 25 kg/m2 Swollen legs Varicose veins or History of unexplained or recurrent spontaneous Oral contraceptives or hormone replacement Sepsis (< 1 month) Serious lung disease, including pneumonia (< 1 month) Abnormal pulmonary function Acute myocardial infarction Congestive heart failure (< 1 month) History of inflammatory bowel disease Medical patient at bed rest Age 61-74 Arthroscopic surgery Major open surgery (> 45 min) Laparoscopic surgery (> 45 min) Malignancy Confined to bed (> 72 hours) Immobilizing plaster cast Central venous access Age >= 75 History of VTE Family history of VTE Factor V Leiden Prothrombin [id number] Lupus anticoagulant Anticardiolipin antibodies Elevated serum homocysteine Heparin-induced thrombocytopenia Other congenital or acquired thrombophilia Stroke (< 1 month) Elective arthroplasty Hip, pelvis, or leg fracture Acute spinal cord injury (< 1 month) Prophylaxis Regimen Total Risk Factor Score Risk Level Prophylaxis Regimen 0-1 Low Early ambulation 2 Moderate Order ONE of the following: *Sequential Compression Device (SCD) *Heparin 5000 units SQ BID 3-4 Higher Order ONE of the following medications: *Heparin 5000 units SQ TID *Enoxaparin/Lovenox 40 mg SQ daily (WT < 150 kg, CrCl > 30 mL/min) *Enoxaparin/Lovenox 30 mg SQ daily (WT < 150 kg, CrCl > 10-29 mL/min) *Enoxaparin/Lovenox 30 mg SQ BID (WT < 150 kg, CrCl > 30 mL/min) AND/OR *Sequential Compression Device (SCD) 5 or more Highest Order ONE of the following medications: *Heparin 5000 units SQ TID (Preferred with Epidurals) *Enoxaparin/Lovenox 40 mg SQ daily (WT < 150 kg, CrCl > 30 mL/min) *Enoxaparin/Lovenox 30 mg SQ daily (WT < 150 kg, CrCl > 10-29 mL/min) *Enoxaparin/Lovenox 30 mg SQ BID (WT < 150 kg, CrCl > 30 mL/min) AND *Sequential Compression Device (SCD) Assessment and Plan Assessment and Plan 76 years old female admitted with Change in mental status UTI Hypoxia with right hilar mass on bibasilar infiltrate possibly HCHP Increase transaminase AST/ALT 256/104 History of CAD patient has an AICD with pacemaker A. fib on Coumadin coumadin toxicity Thyroidism Depression Hypertension History of CVA DVT prophylaxis Plan:: Admit to inpatient telemetry O2, DuoNeb Chest x-ray and CT chest reviewed personally by me showing right hilar mass and bibasilar infiltrate Consult pulmonology Patient received Azactam cefepime and metronidazole, I will continue with iv antibiotic with Zosyn and Levaquin and vancomycin with pharmacy consultation for dosing Solu-Medrol Influenza test negative Check blood culture, patient complaining of teeth pain Levaquin will cover for UTI, follow culture Check hepatitis panel and liver ultrasound hold coumadin , repeat pt inr daysi Troponin SCD for DVT prophylaxis Discussed Condition With Nurse and echo tach Physician Certification 2 Midnight Certification Type: Admission for Inpatient Services Order for Inpatient Services The services are ordered in accordance with Medicare regulations or non- Medicare payer requirements, as applicable. In the case of services not specified as inpatient-only, they are appropriately provided as inpatient services in accordance with the 2-midnight benchmark. Estimated LOS (days): 3 days is the estimated time the patient will need to remain in the hospital, assuming treatment plan goals are met and no additional complications. Post-Hospital Plan: SNF Melyssa Rodriguez MD Jul 25, 2017 10:11
[2017-07-25] MEDS ORDERED: RESP: ALBUTEROL 2.5 MG/IPRATROPIUM 0.5 MG NEB (PRN) NEB (10:15)
--- NOTE | 2017-07-25 11:00 | RADRPT ---
EXAM DATE/TIME: 07/25/2017 09:34 [facility] COMPARISON: CT ABDOMEN & PELVIS W/O CONTRAST, June 28, 2017, 19:58. INDICATIONS : Elevated liver enzymes. MEDICAL HISTORY : Chronic obstructive pulmonary disease. Hypertension. Hypercholesterolemia. Cardiomyopathy. A-fib. Div erticulitis. Left breast cancer. SURGICAL HISTORY : Tonsillectomy. Pacemaker. Hysterectomy. Cholecystectomy. Lymphectomy. ENCOUNTER: Initial ACUITY: 1 day PAIN SCORE: 3/10 LOCATION: Right upper quadrant MEASUREMENTS: LIVER: 16.8 cm length COMMON DUCT: 4 mm RIGHT KIDNEY: 9.3 x 4.4 x 5.8 cm SPLEEN: 8.6 cm length FINDINGS: LIVER: Normal echotexture without focal lesion or ductal dilatation. There may be early portal hypertension COMMON DUCT: No intraluminal mass or stone visualized. GALLBLADDER: Surgically absent PANCREAS: The visualized portions are within normal limits. RIGHT KIDNEY: No hydronephrosis, stone or mass. SPLEEN: No focal lesion. CONCLUSION: Possible early portal hypertension with sluggish portal flow. No intrahepatic biliar y duct dilatation. Miguelito Mcgovern MD FACR on July 25, 2017 at 10:56 Board Certified Radiologist. This report was verified electronically.
[2017-07-25] MEDS: PIPERACIL-TAZO 4.5 GM PREMIX 100 ML IV SCH ×2 (11:34→18:05)
[2017-07-25] MEDS: LEVOFLOXACIN 750 MG TAB PO SCH (11:34)
[2017-07-25] MEDS: methylPREDNISolone SOD SUCC 40 MG/1 ML VIAL IV PUSH SCH ×2 (11:34→23:00)
[2017-07-25] MEDS: RESP: ALBUTEROL 2.5 MG/IPRATROPIUM 0.5 MG NEB (SCH) NEB ×3 (11:55→21:02)
[2017-07-25] MEDS ORDERED: ACETAMINOPHEN 325 MG TAB PO PRN (12:45)
[2017-07-25 13:37] LABS: HEPATITIS A AB IGM NEGATIVE (NEGATIVE); HEPATITIS B CORE AB IGM NEGATIVE (NEGATIVE); HEPATITIS B SURFACE ANTIGEN NEGATIVE (NEGATIVE)
[2017-07-25] MEDS: HEPARIN SODIUM - SQ 10,000 UNITS/ML VIAL SQ SCH ×2 (14:16→22:14)
[2017-07-25 15:21] LABS: HEPATITIS C AB IgG NEGATIVE (NEGATIVE)
--- NOTE | 2017-07-25 21:25 | EKG ---
Date Performed: 07/25/2017 Time Performed: 01:40:48 PTAGE: 76 years EKG: ELECTRONIC VENTRICULAR PACEMAKER ABNORMAL RHYTHM ECG PREVIOUS TRACING : 03/27/2016 21.00 Compared to prior tracing no significant change DOCTOR: Efraín Reich Interpretating Date/Time 07/25/2017 21:23:30
[2017-07-25] MEDS: QUEtiapine FUMARATE 25 MG TAB PO SCH (22:13)
[2017-07-25] MEDS: DULoxetine HCl DR 30 MG CAP PO SCH (22:13)
[2017-07-26] VITALS (10 sets, daily range): BP systolic 121–154; BP diastolic 58–81; PULSE 59–90; RESP 17–20; TEMP 97.5–98.9; O2SAT 92–98
[2017-07-26] MEDS ORDERED: HALOPERIDOL LACTATE 5 MG/ML AMP IM ONE
[2017-07-26] MEDS: PIPERACIL-TAZO 4.5 GM PREMIX 100 ML IV SCH ×4 (06:17→17:19)
[2017-07-26] MEDS: HEPARIN SODIUM - SQ 10,000 UNITS/ML VIAL SQ SCH ×2 (06:17→13:42)
[2017-07-26] MEDS: DULoxetine HCl DR 30 MG CAP PO SCH ×2 (08:04→21:44)
[2017-07-26] MEDS: OSELTAMIVIR PHOSPHATE 75 MG CAP PO SCH (08:04)
[2017-07-26] MEDS: SODIUM CHLORIDE 0.9% FLUSH 10 ML FLUSH IV FLUSH SCH ×2 (08:07→21:44)
[2017-07-26] MEDS: METOPROLOL TARTRATE 25 MG TAB PO SCH (08:07)
[2017-07-26] MEDS: RESP: ALBUTEROL 2.5 MG/IPRATROPIUM 0.5 MG NEB (SCH) NEB ×4 (08:17→19:36)
[2017-07-26] MEDS ORDERED: MEMANTINE 28 MG PO SCH (09:00)
[2017-07-26] MEDS: methylPREDNISolone SOD SUCC 40 MG/1 ML VIAL IV PUSH SCH ×2 (11:21→21:43)
[2017-07-26] MEDS: LEVOFLOXACIN 750 MG TAB PO SCH (11:21)
[2017-07-26] MEDS: VANCOMYCIN INJ 1,250 MG in SODIUM CHLOR 0.9% 250 ML INJ 250 ML IV SCH ×3 (18:08)
--- NOTE | 2017-07-26 18:52 | HHI.PR ---
Subjective Remarks Patient looks better to me today, more awake and alert, denied pain, she smiling , daughter at the bedside Still awaiting CMP, liver ultrasound showed increased portal hypertension, hepatitis panel was negative Objective Vitals Vital Signs Date Time Temp Pulse Resp B/P (MAP) Pulse Ox O2 Delivery O2 Flow Rate FiO2 07/26/17 15:51 98.8 69 18 124/77 (93) 97 07/26/17 12:04 97.5 79 18 127/59 (81) 95 07/26/17 08:23 98.7 62 20 124/59 (80) 97 07/26/17 08:19 92 21 07/26/17 04:34 98.6 62 17 121/58 (79) 96 07/26/17 03:47 59 07/25/17 19:31 97.8 63 17 115/54 (74) 95 I/O 07/25/17 07/25/17 07/25/17 07/26/17 07/26/17 07/26/17 06:59 14:59 22:59 06:59 14:59 22:59 Intake Total 100 ml Balance 100 ml Intake IV Total 100 ml # Voids 2 4 Result Diagram: 07/25/17 0146 07/25/17 0146 Imaging Last Impressions Head CT 07/25/17133 Signed Impressions: Service Date/Time: Tuesday, July 25, 2017 02:03 - CONCLUSION: 1. No evidence of acute intracranial pathology. Chronic ischemic changes as above. 2. Sinus disease as above Ezequiel Ordoñez MD Chest X-Ray 07/25/17133 Signed Impressions: Service Date/Time: Tuesday, July 25, 2017 02:01 - CONCLUSION: 1. Cardiomegaly. No acute pulmonary disease. Ezequiel Ordoñez MD Liver Ultrasound 07/25/17 0000 Signed Impressions: Service Date/Time: Tuesday, July 25, 2017 09:34 - CONCLUSION: Possible early portal hypertension with sluggish portal flow. No intrahepatic biliary duct dilatation. Miguelito Mcgovern MD FACR Chest CT 07/25/17 0000 Signed Impressions: Service Date/Time: Tuesday, July 25, 2017 04:40 - CONCLUSION: 1. Possible right hilar mass. PET/CT and. bronchoscopy could be considered. 2. Bronchiectasis in both bases with bibasilar alveolar opacity inflammatory or infectious Ezequiel Ordoñez MD Objective Remarks GENERAL: This is a frail elderly lady resting comfortably in bed SKIN: No rashes, warm and dry HEAD: Atraumatic. Normocephalic. EYES: Pupils equal round and reactive. Extraocular motions intact. No scleral icterus. ENT: Nose without bleeding, or drainage, Airway patent. NECK: Trachea midline. Supple CARDIOVASCULAR: Regular rate and rhythm without murmurs, gallops, or rubs. RESPIRATORY: Fair air entry bilaterally. No wheezes, rales, or rhonchi. GASTROINTESTINAL: Abdomen soft, non-tender, nondistended. Positive bowel sounds MUSCULOSKELETAL: Extremities without clubbing, cyanosis, or edema. Pedal pulses appreciated NEUROLOGICAL: Awake and alert demented. Moves all extremity. Normal speech.no focal neurological deficit A/P Assessment and Plan 76 years old female admitted with Change in mental status UTI Hypoxia with right hilar mass on bibasilar infiltrate possibly HCHP Increase transaminase AST/ALT 256/104 History of CAD patient has an AICD with pacemaker A. fib on Coumadin coumadin toxicity Thyroidism Depression Hypertension History of CVA DVT prophylaxis Plan:: Liver ultrasound showing increased portal hypertension, still awaiting CMP, hepatitis panel negative, consider GI consult Still awaiting PT/INR to decide on resuming Coumadin, will consult pharmacy for dosing O2, DuoNeb Chest x-ray and CT chest reviewed personally by me showing right hilar mass and bibasilar infiltrate Consult pulmonology appreciate consult, I was told by the nurse patient was cleared to go on antibiotic to rehabilitation Tinea iv antibiotic with Zosyn and Levaquin and vancomycin with pharmacy consultation for dosing Solu-Medrol Influenza test negative Follow blood culture, patient complaining of teeth pain Levaquin will cover for UTI, follow culture Check hepatitis panel and liver ultrasound hold coumadin , repeat pt inr daysi Troponin SCD for DVT prophylaxis Discharge Planning Once liver enzymes issue addressed, awaiting repeat CMP, we may need GI consult Melyssa Rodriguez MD Jul 26, 2017 18:52
--- NOTE | 2017-07-26 19:05 | MB ---
cc: NADEEN CARRILLO MD DATE OF CONSULTATION 07/26/17 REASON FOR CONSULTATION Pneumonia HISTORY OF PRESENT ILLNESS This is a 76 year old female who came to the hospital from a [facility] because she had change in mental status. The patient was found to have hypoxemia down to 88%. The patient had a CT chest that did show pulmonary infiltrates with right hilar mass. The patient is doing well today. She denied any shortness of breath to me, however, she is a very poor historian. She also was found to have a urinary tract infection. She is currently on antibiotics. REVIEW OF SYSTEMS Very limited. PAST MEDICAL HISTORY Reviewed in detail PAST SURGICAL HISTORY Reviewed. ALLERGIES Reviewed in detail. She has a long history of allergies. FAMILY HISTORY Not available. SOCIAL HISTORY She is a [facility] resident. No tobacco or illicit drug use. PHYSICAL EXAMINATION VITAL SIGNS: I reviewed her vital signs, all stable. GENERAL: In no acute distress frail lady. HEENT: Normocephalic, atraumatic. LUNGS: Bilateral crackles. HEART: S1, S2. ABDOMEN: Soft, no signs to suggest tenderness. EXTREMITIES: No significant edema or cyanosis. NEUROLOGIC: Alert, moves all extremities. No focal deficits. CARDIOLOGY STUDIES I reviewed her CT chest that did show possible hilar mass. She did have bronchiectasis in both bases. LABORATORY DATA WBC 5.1, sodium 139, potassium 3.5, BUN 11, creatinine 0.7. ASSESSMENT AND PLAN 1. Pneumonia 2. Urinary tract infection 3. Possible hilar mass. I do believe that patient is doing well. I would like to recommend for her to be treated with antibiotics. The patient will need to have a follow up CAT scan in about four weeks. If she continues to have the infiltrate to the hilar mass the patient will benefit from a bronchoscopy. However, this will need to be addressed later on. I discussed with the patient and the family, however, this all can be done as an outpatient. No need to do any inpatient intervention at this point in my opinion. MD LAURA Phillips/ /5:38 PM /6:36 PM
[2017-07-26 19:15] LABS: INTERNATIONAL NORMALIZED RATIO 5.1 RATIO; PROTHROMBIN TIME - PATIENT 50.7 SEC (9.8-11.6)
[2017-07-26 19:20] LABS: ALBUMIN 2.9 GM/DL (3.4-5.0); AST (GOT) 67 U/L (15-37); BICARBONATE 22.7 MEQ/L (21.0-32.0); BLOOD UREA NITROGEN 7 MG/DL (7-18); CALCIUM 7.9 MG/DL (8.5-10.1); CHLORIDE 105 MEQ/L (98-107); CREATININE 0.62 MG/DL (0.50-1.00); GLOMERULAR FILTRATION RATE 94 ML/MIN (>89); GLUCOSE,RANDOM 122 MG/DL (74-106); SODIUM (NA) 138 MEQ/L (136-145)
[2017-07-26 19:38] LABS: ALKALINE PHOSPHATASE 137 U/L (45-117); ALT (GPT) 72 U/L (10-53); TOTAL BILIRUBIN ADULT 0.5 MG/DL (0.2-1.0); TOTAL PROTEIN 6.5 GM/DL (6.4-8.2)
[2017-07-26] MEDS: QUEtiapine FUMARATE 25 MG TAB PO SCH (21:44)
[2017-07-26 21:49] LABS: AUTOMATED NEUTROPHIL # 4.7 TH/MM3 (1.8-7.7); BASOPHIL % 0.2 % (0.0-2.0); HEMATOCRIT 35.5 % (35.0-46.0); LYMPH % 19.7 % (9.0-44.0); LYMPHOCYTE # 1.3 TH/MM3 (1.0-4.8); MEAN CELL VOLUME 88.7 FL (80.0-100.0); MEAN CORPUSCULAR HGB CONC 33.8 % (32.0-36.0); MEAN PLATELET VOLUME 9.1 FL (7.0-11.0); MONO % 7.4 % (0.0-8.0); MONOCYTE # 0.5 TH/MM3 (0-0.9); NEUT % 72.7 % (16.0-70.0); PLATELET COUNT 179 TH/MM3 (150-450); RED BLOOD COUNT 4.01 MIL/MM3 (4.00-5.30); RED CELL DISTRIBUTION WIDTH 13.2 % (11.6-17.2); WHITE BLOOD COUNT 6.5 TH/MM3 (4.0-11.0)
[2017-07-27] VITALS (8 sets, daily range): BP systolic 129–143; BP diastolic 63–96; PULSE 61–78; RESP 16–18; TEMP 96.8–98.1; O2SAT 93–97
[2017-07-27] MEDS: PIPERACIL-TAZO 4.5 GM PREMIX 100 ML IV SCH ×4 (01:32→21:32)
[2017-07-27] MEDS: RESP: ALBUTEROL 2.5 MG/IPRATROPIUM 0.5 MG NEB (SCH) NEB ×4 (07:18→19:50)
[2017-07-27 07:32] LABS: INTERNATIONAL NORMALIZED RATIO 4.3 RATIO; PROTHROMBIN TIME - PATIENT 42.9 SEC (9.8-11.6)
--- NOTE | 2017-07-27 08:22 | HHI.PR ---
Subjective Remarks in no acute distress. but still with bilateral wheezing and some sob. afebrile. Objective Vitals Vital Signs Date Time Temp Pulse Resp B/P (MAP) Pulse Ox O2 Delivery O2 Flow Rate FiO2 07/27/17 07:38 98.0 63 16 132/63 (86) 96 07/27/17 00:04 68 18 136/66 (89) 95 07/26/17 20:45 98.0 84 18 154/67 (96) 98 07/26/17 19:36 97 21 07/26/17 15:51 98.8 69 18 124/77 (93) 97 07/26/17 12:04 97.5 79 18 127/59 (81) 95 07/26/17 08:23 98.7 62 20 124/59 (80) 97 07/26/17 08:19 92 21 I/O 07/26/17 07/26/17 07/26/17 07/27/17 07/27/17 07/27/17 07:00 15:00 23:00 07:00 15:00 23:00 # Voids 4 Result Diagram: 07/26/17204707/26/171826 Imaging Last Impressions Head CT 07/25/17 0134 Signed Impressions: Service Date/Time: Tuesday, July 25, 2017 02:03 - CONCLUSION: 1. No evidence of acute intracranial pathology. Chronic ischemic changes as above. 2. Sinus disease as above Ezequiel Ordoñez MD Chest X-Ray 07/25/17 0134 Signed Impressions: Service Date/Time: Tuesday, July 25, 2017 02:01 - CONCLUSION: 1. Cardiomegaly. No acute pulmonary disease. Ezequiel Ordoñez MD Liver Ultrasound 07/25/17 0000 Signed Impressions: Service Date/Time: Tuesday, July 25, 2017 09:34 - CONCLUSION: Possible early portal hypertension with sluggish portal flow. No intrahepatic biliary duct dilatation. Miguelito Mcgovern MD FACR Chest CT 07/25/17 0000 Signed Impressions: Service Date/Time: Tuesday, July 25, 2017 04:40 - CONCLUSION: 1. Possible right hilar mass. PET/CT and. bronchoscopy could be considered. 2. Bronchiectasis in both bases with bibasilar alveolar opacity inflammatory or infectious Ezequiel Ordoñez MD Objective Remarks GENERAL: This is a well-nourished, well-developed patient, in no apparent distress. CARDIOVASCULAR: Regular rate and regular rhythm without murmurs, gallops, or rubs. RESPIRATORY: bilateral wheezing. GASTROINTESTINAL: Abdomen soft, non-tender, nondistended. Normal, active bowel sounds MUSCULOSKELETAL: Extremities without clubbing, cyanosis, or edema. NEURO: Alert & Oriented x4 to person, place, time, situation. Moves all ext x4 Medications and IVs Inpatient Medications Acetaminophen (Tylenol) 650 mg Q6H PRN PO FEVER Last administered on 07/25/17at 14:00; Start 07/25/17 at 12:45 Albuterol/ Ipratropium (Duoneb Neb) 1 ampule Q2HR NEB PRN NEB short of breath; Start 07/25/17 at 10:15 Aztreonam 2000 mg/ Sodium Chloride 100 ml @ 200 mls/hr ONCE STAT IV Last administered on 07/25/17at 08:12; Start 07/25/17 at 06:11; Stop 07/25/17 at 06:40 ; Status DC Cefepime HCl 2000 mg/Sodium Chloride 100 ml @ 200 mls/hr ONCE STAT IV Last administered on 07/25/17at 06:34; Start 07/25/17 at 06:11; Stop 07/25/17 at 06:40 ; Status DC Duloxetine HCl (Cymbalta Dr) 30 mg BID PO Last administered on 07/26/17at 21:44 ; Start 07/25/17 at 21:00 Haloperidol Lactate (Haldol Inj) 5 mg ONCE ONCE IM Last administered on at 23:59; Start 07/26/17 at 00:00; Stop 07/26/17 at 00:01; Status DC Heparin Sodium (Porcine) (Heparin Inj) 5,000 units Q8HR SQ Last administered on 07/26/17at 13:42; Start 07/25/17 at 14:00; Stop 07/26/17 at 20:02; Status DC Levofloxacin (Levaquin) 750 mg Q24H PO Last administered on 07/26/17at 11:21; Start 07/25/17 at 11:00 Methylprednisolone Sodium Succinate (SoluMEDROL INJ) 40 mg Q12H IV PUSH Last administered on 07/26/17at 21:43; Start 07/25/17 at 11:00 Metoprolol Tartrate (Lopressor) 12.5 mg DAILY PO Last administered on at 08:07; Start 07/26/17 at 09:00 Metronidazole 100 ml @ 100 mls/hr ONCE STAT IV Last administered on at 07:46; Start 07/25/17 at 06:11; Stop 07/25/17 at 07:10; Status DC Miscellaneous Information SPECIFIC LAB TO BE DRAWN:VANCOMYCIN TROUGH DATE TO... ONCE ONCE .XX ; Start 07/28/17 at 05:45; Stop 07/28/17 at 05:46 Naloxone HCl (Narcan Inj) 0.4 mg UNSCH PRN IV PUSH SEE LABEL COMMENTS; Start at 04:15 Oseltamivir Phosphate (Tamiflu) 75 mg DAILY PO Last administered on 07/26/17at 08:04; Start 07/26/17 at 09:00; Stop 08/05/17 at 08:59 Patient Own Medication PT OWN MED: (Memant... DAILY PO ; Start 07/26/17 at 09:00 ; Status Future Hold Pharmacy Profile Note 0 ml @ 0 mls/hr UNSCH OTHER ; Start 07/26/17 at 19:00 Piperacillin Sod/ Tazobactam Sod 100 ml @ 200 mls/hr Q6H IV Last administered on 07/27/17at 06:00; Start 07/25/17 at 12:00 Quetiapine Fumarate (SEROquel) 50 mg HS PO Last administered on 07/26/17at 21:44 ; Start 07/25/17 at 21:00 Sodium Chloride (NS Flush) 2 ml BID IV FLUSH Last administered on 07/26/17at 21: 44; Start 07/25/17 at 09:00 Vancomycin HCl 1000 mg/Sodium Chloride 250 ml @ 250 mls/hr ONCE ONCE IV Last administered on 07/25/17at 11:33; Start 07/25/17 at 10:00; Stop 07/25/17 at 10:59 ; Status DC Vancomycin HCl 1250 mg/Sodium Chloride 262.5 ml @ 250 mls/hr Q18H IV Last administered on 07/26/17at 18:08; Start 07/26/17 at 00:00 A/P Assessment and Plan A/P right hilar mass on bibasilar infiltrate possibly HCHP continue with IV antibiotics, neb treatment and IV steroids. pulmonary consult appreciated; recommended repeat CT chest in four weeks. Increase transaminase AST/ALT - trending down- repeat LFT's today. hepatitis panel negative. UTI- on antibiotic- follow the UC History of CAD patient has an AICD with pacemaker/ A. fib on Coumadin INR still supratherpaeutic- hold coumadin- INR tomorrow. Hypertension; continue metoprolol. History of CVA; continue coumadin DVT prophylaxis; on coumadin PT consulted. Discharge Planning dc to SNF tomorrow if clinically better. Rene Jefferson MD Jul 27, 2017 08:22
[2017-07-27] MEDS: DULoxetine HCl DR 30 MG CAP PO SCH ×2 (08:54→21:32)
[2017-07-27] MEDS: OSELTAMIVIR PHOSPHATE 75 MG CAP PO SCH (08:55)
[2017-07-27] MEDS: SODIUM CHLORIDE 0.9% FLUSH 10 ML FLUSH IV FLUSH SCH ×2 (08:56→21:33)
[2017-07-27] MEDS: METOPROLOL TARTRATE 25 MG TAB PO SCH (08:56)
--- NOTE | 2017-07-27 09:56 | PD.CONS ---
HPI History of Present Illness This is a 76 year old female who was admitted on 07/25/17 from the skilled nursing with altered mental status. Patient is being treated for pneumonia , continues to be mild shortness of breath and low volumes. She answers very simple questions but is a very poor historian. Most of the information been obtained from the record. Currently patient has had one episode of hemoptysis this a.m. current INR is 4.3 and has been elevated per the record for several days. Patient has been on Coumadin therapy which currently is on hold, she denies any abdominal pain on exam. On 07/25/17 liver ultrasound showed no duct dilation, initial LFTs elevated but trending down. According to CT scan done on 06/28/17 patient has diverticulosis and is post op cholecystectomy. She has a decreased appetite, but no active vomiting. Patient's medical history is significant for mitral valve replacement pacemaker and AICD, and vascular disease. Hemoglobin is stable at 12. (Karon Vazquez) [facility] Past Medical History The patient's past medical history is significant for coronary artery disease atrial fibrillation chronically anticoagulated on Coumadin, history of AICD and pacemaker placement, history of hypothyroid disorder, depression, acid reflux, migraine headaches, hypertension, prior history of cerebrovascular accident, history of dementia. Past Surgical History The patient's past surgical history is significant for mitral valve replacement , pacemaker placement, AICD placement, hysterectomy, bilateral vein stripping, left eye surgery, cholecystectomy. (Karon Vazquez) Coded Allergies: codeine (Unverified Allergy, Severe, HEADACHE, 07/25/17) iodine (Unverified Allergy, Severe, MERTHIOLATE = RASH, 07/25/17) morphine (Unverified Allergy, Severe, HEART RATE DROPS, 07/25/17) potassium iodide (Unverified Allergy, Severe, MERTHIOLATE = RASH, 07/25/17) povidone-iodine (Unverified Allergy, Severe, MERTHIOLATE = RASH, 07/25/17) sodium iodide (Unverified Allergy, Severe, MERTHIOLATE = RASH, 07/25/17) sodium iodide (Unverified Allergy, Severe, MERTHIOLATE = RASH, 07/25/17) *MDRO Multi-Drug Resistant Organism (Verified Allergy, Unknown, 07/25/17) MRSA carvedilol (Unverified Allergy, Unknown, 07/25/17) enalaprilat (Unverified Allergy, Unknown, 07/25/17) procaine (Unverified Allergy, Unknown, 07/25/17) MRI PRECAUTION (Verified Adverse Reaction, Severe, PACEMAKER 06/28/17 AW, 07/25/17) MEDTRONIC PACEMAKER 06/28/17 AW Sulfa (Sulfonamide Antibiotics) (Unverified Adverse Reaction, Severe, NAUSEA/VOMITING, 07/25/17) Uncoded Allergies: METHIOLATE (Allergy, Severe, RASH, 09/13/10) Medications Administered Medications Medications (Trade) Dose Ordered Sig/Ana Route PRN Reason Start Time Stop Time Status Last Admin Dose Admin Sodium Chloride (NS Flush) 2 ml BID IV FLUSH 07/25/17 09:00 07/27/17 08:56 Piperacillin Sod/ Tazobactam Sod 100 ml @ 200 mls/hr Q6H IV 07/25/17 12:00 07/27/17 06:00 Levofloxacin (Levaquin) 750 mg Q24H PO 07/25/17 11:00 07/26/17 11:21 Oseltamivir Phosphate (Tamiflu) 75 mg DAILY PO 07/26/17 09:00 08/05/17 08:59 07/27/17 08:55 Methylprednisolone Sodium Succinate (SoluMEDROL INJ) 40 mg Q12H IV PUSH 07/25/17 11:00 07/26/17 21:43 Albuterol/ Ipratropium (Duoneb Neb) 1 ampule QID NEB NEB 07/25/17 12:00 07/27/17 07:18 Duloxetine HCl (Cymbalta Dr) 30 mg BID PO 07/25/17 21:00 07/27/17 08:54 Metoprolol Tartrate (Lopressor) 12.5 mg DAILY PO 07/26/17 09:00 07/27/17 08:56 Quetiapine Fumarate (SEROquel) 50 mg HS PO 07/25/17 21:00 07/26/17 21:44 Vancomycin HCl 1250 mg/Sodium Chloride 262.5 ml @ 250 mls/hr Q18H IV 07/26/17 00:00 07/26/17 18:08 Acetaminophen (Tylenol) 650 mg Q6H PRN PO FEVER 07/25/17 12:45 07/25/17 14:00 Family History Unobtainable Social History Per the record no tobacco alcohol or illicit drug abuse (Karon Vazquez) Review of Systems Hemoptysis, fatigue (Karon Vazquez) GI Exam Vitals I&O Vital Signs Date Time Temp Pulse Resp B/P (MAP) Pulse Ox O2 Delivery O2 Flow Rate FiO2 07/27/17 07:38 98.0 63 16 132/63 (86) 96 07/27/17 07:20 96 07/27/17 00:04 68 18 136/66 (89) 95 07/26/17 20:45 98.0 84 18 154/67 (96) 98 07/26/17 19:36 97 21 07/26/17 15:51 98.8 69 18 124/77 (93) 97 07/26/17 12:04 97.5 79 18 127/59 (81) 95 I/O 07/26/17 07/26/17 07/26/17 07/27/17 07/27/17 07/27/17 07:00 15:00 23:00 07:00 15:00 23:00 # Voids 4 Imaging Last Impressions Head CT 07/25/17 013 Signed Impressions: Service Date/Time: Tuesday, July 25, 2017 02:03 - CONCLUSION: 1. No evidence of acute intracranial pathology. Chronic ischemic changes as above. 2. Sinus disease as above Ezequiel Ordoñez MD Chest X-Ray 07/25/17 0134 Signed Impressions: Service Date/Time: Tuesday, July 25, 2017 02:01 - CONCLUSION: 1. Cardiomegaly. No acute pulmonary disease. Ezequiel Ordoñez MD Liver Ultrasound 07/25/17 0000 Signed Impressions: Service Date/Time: Tuesday, July 25, 2017 09:34 - CONCLUSION: Possible early portal hypertension with sluggish portal flow. No intrahepatic biliary duct dilatation. Miguelito Mcgovern MD FACR Chest CT 07/25/17 0000 Signed Impressions: Service Date/Time: Tuesday, July 25, 2017 04:40 - CONCLUSION: 1. Possible right hilar mass. PET/CT and. bronchoscopy could be considered. 2. Bronchiectasis in both bases with bibasilar alveolar opacity inflammatory or infectious Ezequiel Ordoñez MD Laboratory Test 07/26/17 18:27 07/26/17 20:48 07/27/17 06:25 Prothrombin Time 50.7 SEC 42.9 SEC Prothromb Time International Ratio 5.1 RATIO 4.3 RATIO Blood Urea Nitrogen 7 MG/DL Creatinine 0.62 MG/DL Random Glucose 122 MG/DL Total Protein 6.5 GM/DL Albumin 2.9 GM/DL Calcium Level 7.9 MG/DL Alkaline Phosphatase 137 U/L Aspartate Amino Transf (AST/SGOT) 67 U/L Alanine Aminotransferase (ALT/SGPT) 72 U/L Total Bilirubin 0.5 MG/DL Sodium Level 138 MEQ/L Potassium Level 3.2 MEQ/L Chloride Level 105 MEQ/L Carbon Dioxide Level 22.7 MEQ/L Anion Gap 10 MEQ/L Estimat Glomerular Filtration Rate 94 ML/MIN White Blood Count 6.5 TH/MM3 Red Blood Count 4.01 MIL/MM3 Hemoglobin 12.0 GM/DL Hematocrit 35.5 % Mean Corpuscular Volume 88.7 FL Mean Corpuscular Hemoglobin 30.0 PG Mean Corpuscular Hemoglobin Concent 33.8 % Red Cell Distribution Width 13.2 % Platelet Count 179 TH/MM3 Mean Platelet Volume 9.1 FL Neutrophils (%) (Auto) 72.7 % Lymphocytes (%) (Auto) 19.7 % Monocytes (%) (Auto) 7.4 % Eosinophils (%) (Auto) 0.0 % Basophils (%) (Auto) 0.2 % Neutrophils # (Auto) 4.7 TH/MM3 Lymphocytes # (Auto) 1.3 TH/MM3 Monocytes # (Auto) 0.5 TH/MM3 Eosinophils # (Auto) 0.0 TH/MM3 Basophils # (Auto) 0.0 TH/MM3 CBC Comment DIFF FINAL Differential Comment Date/Time Source Procedure Growth Status 07/25/17 10:18 Blood Peripheral Aerobic Blood Culture - Preliminary NO GROWTH IN 1 DAY Resulted 07/25/17 10:18 Blood Peripheral Anaerobic Blood Culture - Preliminary NO GROWTH IN 1 DAY Resulted 07/25/17 04:08 Nasal Aspirate Influenza Types A,B Antigen (VONDA) - Final NEGATIVE FOR FLU A AND B ANTIGEN.... Complete 07/25/17 01:56 Urine Random Urine Urine Culture - Preliminary Gram Negative Mejia Resulted Physical Examination HEENT: Pupils round and reactive to light; normocephalic; atraumatic; no jaundice. , Pale NECK: Neck is supple, no JVD, no obvious lymphadenopathy. CHEST: Low volumes, mild shortness of breath even at rest CARDIAC: Irregular rate and rhythm ABDOMEN: Soft, nondistended, nontender; no hepatosplenomegaly; bowel sounds soft EXTREMITIES: No edema. SKIN: Thin skin turgor no rash; no jaundice. SCREENER AND BLENDER OPERATOR: Awake but poor historian (Karon Vazquez) Assessment and Plan Assessment: (1) Anemia ICD Codes: D64.9 - Anemia, unspecified (2) Portal hypertension ICD Codes: K76.6 - Portal hypertension (3) Elevated LFTs ICD Codes: R79.89 - Other specified abnormal findings of blood chemistry (4) Diverticulosis ICD Codes: K57.90 - Diverticulosis of intestine, part unspecified, without perforation or abscess without bleeding (5) Elevated INR ICD Codes: R79.1 - Abnormal coagulation profile (6) Hemoptysis ICD Codes: R04.2 - Hemoptysis Plan Hemoptysis, this is probably due to elevated INR, currently Coumadin dose is on hold. Possibly consider vitamin K either IV or by mouth. Elevated LFTs, unknown cause, liver ultrasound shows no duct dilation on , Diverticulosis. Stable CT on 1213 shows no diverticulitis Anemia, probable secondary to chronic disease but appears to be stable at 12. No history of EGD or colonoscopy seen in the record, could consider in the future if patient is stable. Monitor LFTs, recheck in the morning Multiple labs ordered to evaluate elevated LFTs alpha 1 antitrypsin, mitochondrial total, smooth muscle total, ceruloplasmin, BRE, IgG, IgA Monitor hemoglobin, recheck CBC in the morning Monitor any further hemoptysis and continue to hold Coumadin dose, monitor INR Call GI for any acute bleeding episodes which cause her to be unstable Consider vitamin K Further testing and plan a care will be based on patient's symptoms, Cases been discussed with Dr. Arambula, and seen by myself, note written on her behalf (Karon Vazquez) Physician Comments seen, examined agree with above (Elise Arambula MD) Karon Vazquez Jul 27, 2017 09:56 Elise Arambula MD Jul 27, 2017 22:14
[2017-07-27] MEDS: VANCOMYCIN INJ 1,250 MG in SODIUM CHLOR 0.9% 250 ML INJ 250 ML IV SCH ×2 (12:00→14:02)
[2017-07-27] MEDS: methylPREDNISolone SOD SUCC 40 MG/1 ML VIAL IV PUSH SCH ×2 (14:02→21:33)
[2017-07-27] MEDS: LEVOFLOXACIN 750 MG TAB PO SCH (14:02)
[2017-07-27] MEDS ORDERED: POTASSIUM CHLORIDE 25 MEQ EFFERVESCENT TAB PO ONE (14:45)
[2017-07-27 16:14] LABS: AUTOMATED NEUTROPHIL # 9.1 TH/MM3 (1.8-7.7); HEMATOCRIT 34.5 % (35.0-46.0); HEMOGLOBIN 11.6 GM/DL (11.6-15.3); LYMPH % 9.7 % (9.0-44.0); LYMPHOCYTE # 1.1 TH/MM3 (1.0-4.8); MEAN CELL VOLUME 88.4 FL (80.0-100.0); MEAN CORPUSCULAR HEMOGLOBIN 29.7 PG (27.0-34.0); MEAN CORPUSCULAR HGB CONC 33.6 % (32.0-36.0); MEAN PLATELET VOLUME 8.7 FL (7.0-11.0); MONO % 7.2 % (0.0-8.0); MONOCYTE # 0.8 TH/MM3 (0-0.9); NEUT % 83.1 % (16.0-70.0); PLATELET COUNT 221 TH/MM3 (150-450); RED CELL DISTRIBUTION WIDTH 13.3 % (11.6-17.2); WHITE BLOOD COUNT 10.9 TH/MM3 (4.0-11.0)
[2017-07-27 16:33] LABS: ALBUMIN 3.1 GM/DL (3.4-5.0); ALT (GPT) 60 U/L (10-53); AST (GOT) 43 U/L (15-37); BICARBONATE 24.6 MEQ/L (21.0-32.0); BLOOD UREA NITROGEN 10 MG/DL (7-18); CALCIUM 8.2 MG/DL (8.5-10.1); CHLORIDE 107 MEQ/L (98-107); CREATININE 0.62 MG/DL (0.50-1.00); GLOMERULAR FILTRATION RATE 94 ML/MIN (>89); GLUCOSE,RANDOM 112 MG/DL (74-106); SODIUM (NA) 141 MEQ/L (136-145)
[2017-07-27 16:35] LABS: ALKALINE PHOSPHATASE 129 U/L (45-117); TOTAL BILIRUBIN ADULT 0.5 MG/DL (0.2-1.0); TOTAL PROTEIN 6.9 GM/DL (6.4-8.2)
[2017-07-27] MEDS ORDERED: PHYTONADIONE 10 MG/ML VIAL SQ ONE (16:45)
[2017-07-27] MEDS: QUEtiapine FUMARATE 25 MG TAB PO SCH (21:32)
[2017-07-28] VITALS (7 sets, daily range): BP systolic 127–158; BP diastolic 67–88; PULSE 60–72; RESP 18–24; TEMP 96.5–98.1; O2SAT 92–97
[2017-07-28] MEDS: PIPERACIL-TAZO 4.5 GM PREMIX 100 ML IV SCH ×4 (00:55→19:07)
[2017-07-28] MEDS: RESP: ALBUTEROL 2.5 MG/IPRATROPIUM 0.5 MG NEB (SCH) NEB ×4 (07:14→19:30)
--- NOTE | 2017-07-28 08:10 | HHI.PR ---
Subjective Remarks in no acute distress. noted that placed on restraints over night. afebrile. d/w the RN and no acute issues over night. Objective Vitals Vital Signs Date Time Temp Pulse Resp B/P (MAP) Pulse Ox O2 Delivery O2 Flow Rate FiO2 07/28/17 07:16 92 21 07/28/17 04:13 98.1 72 18 129/68 (88) 97 07/28/17 00:06 98.1 67 18 157/87 (110) 95 07/27/17 20:34 98.1 72 17 129/96 (107) 96 07/27/17 15:51 93 21 07/27/17 14:49 96.8 61 16 143/63 (89) 93 07/27/17 11:11 98.0 67 16 136/65 (88) 97 Result Diagram: 07/27/17 1528 07/27/17 1528 Imaging Last Impressions Head CT 07/25/17 0134 Signed Impressions: Service Date/Time: Tuesday, July 25, 2017 02:03 - CONCLUSION: 1. No evidence of acute intracranial pathology. Chronic ischemic changes as above. 2. Sinus disease as above Ezequiel Ordoñez MD Chest X-Ray 07/25/17 0134 Signed Impressions: Service Date/Time: Tuesday, July 25, 2017 02:01 - CONCLUSION: 1. Cardiomegaly. No acute pulmonary disease. Ezequiel Ordoñez MD Liver Ultrasound 07/25/17 0000 Signed Impressions: Service Date/Time: Tuesday, July 25, 2017 09:34 - CONCLUSION: Possible early portal hypertension with sluggish portal flow. No intrahepatic biliary duct dilatation. Miguelito Mcgovern MD FACR Chest CT 07/25/17 0000 Signed Impressions: Service Date/Time: Tuesday, July 25, 2017 04:40 - CONCLUSION: 1. Possible right hilar mass. PET/CT and. bronchoscopy could be considered. 2. Bronchiectasis in both bases with bibasilar alveolar opacity inflammatory or infectious Ezequiel Ordoñez MD Objective Remarks GENERAL: , in no apparent distress.- on wrist restraints. CARDIOVASCULAR: Regular rate and regular rhythm without murmurs, gallops, or rubs. RESPIRATORY: bilateral wheezing seems to be improving. GASTROINTESTINAL: Abdomen soft, non-tender, nondistended. Normal, active bowel sounds MUSCULOSKELETAL: Extremities without clubbing, cyanosis, or edema. NEURO: awake and alert but not oriented to time or place. Medications and IVs Inpatient Medications Acetaminophen (Tylenol) 650 mg Q6H PRN PO FEVER Last administered on 07/25/17at 14:00; Start 07/25/17 at 12:45 Albuterol/ Ipratropium (Duoneb Neb) 1 ampule Q2HR NEB PRN NEB short of breath; Start 07/25/17 at 10:15 Aztreonam 2000 mg/ Sodium Chloride 100 ml @ 200 mls/hr ONCE STAT IV Last administered on 07/25/17at 08:12; Start 07/25/17 at 06:11; Stop 07/25/17 at 06:40 ; Status DC Cefepime HCl 2000 mg/Sodium Chloride 100 ml @ 200 mls/hr ONCE STAT IV Last administered on 07/25/17at 06:34; Start 07/25/17 at 06:11; Stop 07/25/17 at 06:40 ; Status DC Duloxetine HCl (Cymbalta Dr) 30 mg BID PO Last administered on 07/27/17at 21:32 ; Start 07/25/17 at 21:00 Haloperidol Lactate (Haldol Inj) 5 mg ONCE ONCE IM Last administered on at 23:59; Start 07/26/17 at 00:00; Stop 07/26/17 at 00:01; Status DC Heparin Sodium (Porcine) (Heparin Inj) 5,000 units Q8HR SQ Last administered on 07/26/17at 13:42; Start 07/25/17 at 14:00; Stop 07/26/17 at 20:02; Status DC Levofloxacin (Levaquin) 750 mg Q24H PO Last administered on 07/27/17at 14:02; Start 07/25/17 at 11:00 Methylprednisolone Sodium Succinate (SoluMEDROL INJ) 40 mg Q12H IV PUSH Last administered on 07/27/17at 21:33; Start 07/25/17 at 11:00 Metoprolol Tartrate (Lopressor) 12.5 mg DAILY PO Last administered on at 08:56; Start 07/26/17 at 09:00 Metronidazole 100 ml @ 100 mls/hr ONCE STAT IV Last administered on at 07:46; Start 07/25/17 at 06:11; Stop 07/25/17 at 07:10; Status DC Miscellaneous Information SPECIFIC LAB TO BE DRAWN:VANCOMYCIN TROUGH DATE TO... ONCE ONCE .XX ; Start 07/28/17 at 23:45; Stop 07/28/17 at 23:46 Naloxone HCl (Narcan Inj) 0.4 mg UNSCH PRN IV PUSH SEE LABEL COMMENTS; Start at 04:15 Oseltamivir Phosphate (Tamiflu) 75 mg DAILY PO Last administered on 07/27/17at 08:55; Start 07/26/17 at 09:00; Stop 08/05/17 at 08:59 Patient Own Medication PT OWN MED: (Memant... DAILY PO ; Start 07/26/17 at 09:00 ; Status Future Hold Pharmacy Profile Note 0 ml @ 0 mls/hr UNSCH OTHER ; Start 07/26/17 at 19:00 Phytonadione (Vitamin K Inj) 10 mg ONCE ONCE SQ Last administered on at 17:34; Start 07/27/17 at 16:45; Stop 07/27/17 at 16:54; Status DC Piperacillin Sod/ Tazobactam Sod 100 ml @ 200 mls/hr Q6H IV Last administered on 07/28/17at 06:35; Start 07/25/17 at 12:00 Potassium Bicarb/ Potassium Chloride (K-Lyte Cl Eff) 25 meq ONCE ONCE PO Last administered on 07/27/17at 17:33; Start 07/27/17 at 14:45; Stop 07/27/17 at 15:10; Status DC Quetiapine Fumarate (SEROquel) 50 mg HS PO Last administered on 07/27/17at 21:32 ; Start 07/25/17 at 21:00 Sodium Chloride (NS Flush) 2 ml BID IV FLUSH Last administered on 07/27/17at 21: 33; Start 07/25/17 at 09:00 Vancomycin HCl 1000 mg/Sodium Chloride 250 ml @ 250 mls/hr ONCE ONCE IV Last administered on 07/25/17at 11:33; Start 07/25/17 at 10:00; Stop 07/25/17 at 10:59 ; Status DC Vancomycin HCl 1250 mg/Sodium Chloride 262.5 ml @ 250 mls/hr Q18H IV Last administered on 07/27/17at 14:02; Start 07/26/17 at 00:00 A/P Assessment and Plan A/P right hilar mass on bibasilar infiltrate possibly HCHP continue with IV antibiotics, neb treatment and IV steroids. pulmonary consult appreciated; recommended repeat CT chest in four weeks. Increase transaminase AST/ALT - trending down-will monitor LFT's. hepatitis panel negative. GI consult appreciated. UTI- on antibiotic- UC with e-coli. History of CAD patient has an AICD with pacemaker/ A. fib on Coumadin INR supratherpaeutic- coumadin on hold- continue eyal monitor INR. Hypertension; continue metoprolol. History of CVA; continue coumadin DVT prophylaxis; on coumadin PT consulted. Discharge Planning dc to SNF tomorrow if stable and off restraints. Rene Jefferson MD Jul 28, 2017 08:10
--- NOTE | 2017-07-28 09:00 | HHI.GIFU ---
Subjective Remarks Pt continues to be confused, arms restrained. In no apparent distress at this time. (Brittny Rodriguez) Objective Vitals I&O Vital Signs Date Time Temp Pulse Resp B/P (MAP) Pulse Ox O2 Delivery O2 Flow Rate FiO2 07/28/17 07:16 92 21 07/28/17 04:13 98.1 72 18 129/68 (88) 97 07/28/17 00:06 98.1 67 18 157/87 (110) 95 07/27/17 20:34 98.1 72 17 129/96 (107) 96 07/27/17 15:51 93 21 07/27/17 14:49 96.8 61 16 143/63 (89) 93 07/27/17 11:11 98.0 67 16 136/65 (88) 97 Laboratory Laboratory Tests Test 07/27/17 15:28 White Blood Count 10.9 Red Blood Count 3.90 Hemoglobin 11.6 Hematocrit 34.5 Mean Corpuscular Volume 88.4 Mean Corpuscular Hemoglobin 29.7 Mean Corpuscular Hemoglobin Concent 33.6 Red Cell Distribution Width 13.3 Platelet Count 221 Mean Platelet Volume 8.7 Neutrophils (%) (Auto) 83.1 Lymphocytes (%) (Auto) 9.7 Monocytes (%) (Auto) 7.2 Eosinophils (%) (Auto) 0.0 Basophils (%) (Auto) 0.0 Neutrophils # (Auto) 9.1 Lymphocytes # (Auto) 1.1 Monocytes # (Auto) 0.8 Eosinophils # (Auto) 0.0 Basophils # (Auto) 0.0 CBC Comment AUTO DIFF Differential Comment AUTO DIFF CONFIRMED Platelet Estimate NORMAL Platelet Morphology Comment NORMAL Blood Urea Nitrogen 10 Creatinine 0.62 Random Glucose 112 Total Protein 6.9 Albumin 3.1 Calcium Level 8.2 Alkaline Phosphatase 129 Aspartate Amino Transf (AST/SGOT) 43 Alanine Aminotransferase (ALT/SGPT) 60 Total Bilirubin 0.5 Sodium Level 141 Potassium Level 3.0 Chloride Level 107 Carbon Dioxide Level 24.6 Anion Gap 9 Estimat Glomerular Filtration Rate 94 Date/Time Source Procedure Growth Status 07/25/17 10:18 Blood Peripheral Aerobic Blood Culture - Preliminary NO GROWTH IN 2 DAYS Resulted 07/25/17 10:18 Blood Peripheral Anaerobic Blood Culture - Preliminary NO GROWTH IN 2 DAYS Resulted 07/25/17 04:08 Nasal Aspirate Influenza Types A,B Antigen (VONDA) - Final NEGATIVE FOR FLU A AND B ANTIGEN.... Complete 07/25/17 01:56 Urine Random Urine Urine Culture - Final Escherichia Coli Multi-Drug Resistant Complete Imaging Last Impressions Head CT 07/25/17 0134 Signed Impressions: Service Date/Time: Tuesday, July 25, 2017 02:03 - CONCLUSION: 1. No evidence of acute intracranial pathology. Chronic ischemic changes as above. 2. Sinus disease as above Ezequiel Ordoñez MD Chest X-Ray 07/25/17 0134 Signed Impressions: Service Date/Time: Tuesday, July 25, 2017 02:01 - CONCLUSION: 1. Cardiomegaly. No acute pulmonary disease. Ezequiel Ordoñez MD Liver Ultrasound 07/25/17 0000 Signed Impressions: Service Date/Time: Tuesday, July 25, 2017 09:34 - CONCLUSION: Possible early portal hypertension with sluggish portal flow. No intrahepatic biliary duct dilatation. Miguelito Mcgovern MD FACR Chest CT 07/25/17 0000 Signed Impressions: Service Date/Time: Tuesday, July 25, 2017 04:40 - CONCLUSION: 1. Possible right hilar mass. PET/CT and. bronchoscopy could be considered. 2. Bronchiectasis in both bases with bibasilar alveolar opacity inflammatory or infectious Ezequiel Ordoñez MD Physical Exam HEENT: Normocephalic; atraumatic CHEST: Even/unlabored. CARDIAC: RRR ABDOMEN: Soft, nontender, bowel sounds active EXTREMITIES: No clubbing, cyanosis, or edema. SKIN: Normal; no rash; no jaundice. FARM MORTGAGE AGENT: Alert (Brittny Rodriguez CARDING DOUBLER) Assessment and Plan Assessment: (1) Anemia ICD Codes: D64.9 - Anemia, unspecified (2) Portal hypertension ICD Codes: K76.6 - Portal hypertension (3) Elevated LFTs ICD Codes: R79.89 - Other specified abnormal findings of blood chemistry (4) Diverticulosis ICD Codes: K57.90 - Diverticulosis of intestine, part unspecified, without perforation or abscess without bleeding (5) Elevated INR ICD Codes: R79.1 - Abnormal coagulation profile (6) Hemoptysis ICD Codes: R04.2 - Hemoptysis Plan Assessment: - Elevated LFTs- Improving. First set of LFTs (07/25) AST-256 ALT-104 Alk phos- 165 T bili 1.1. Currently (07/28) AST-43 ALT-60 Alk phos-129 T bili 0.5. Liver US (07/25) --> Possible early portal hypertension with sluggish portal flow. No intrahepatic biliary duct dilation. Hepatitis panel negative. Ammonia-11 BRE , AMA, ASMA, ceruloplasmin, celiac panel, Alpha-1 antitrypsin, iron studies pending. - Coagulopathy- INR 4.3 Vit K administered yesterday Plan: - Liver workup pending - Avoid hepatotoxic agents - Monitor INR - Supportive care - Further recommendations to follow based on results of above Pt has been seen and examined by myself and Dr. Arambula and this note is written on her behalf (Brittny Rodriguez) Brittny Rodriguez Jul 28, 2017 09:00 Elise Arambula MD Jul 28, 2017 19:35
[2017-07-28] MEDS: METOPROLOL TARTRATE 25 MG TAB PO SCH (11:57)
[2017-07-28] MEDS: methylPREDNISolone SOD SUCC 40 MG/1 ML VIAL IV PUSH SCH ×2 (11:57→21:37)
[2017-07-28] MEDS: LEVOFLOXACIN 750 MG TAB PO SCH (11:57)
[2017-07-28] MEDS: SODIUM CHLORIDE 0.9% FLUSH 10 ML FLUSH IV FLUSH SCH ×2 (11:58→21:00)
[2017-07-28] MEDS: DULoxetine HCl DR 30 MG CAP PO SCH ×2 (11:58→20:58)
[2017-07-28] MEDS: OSELTAMIVIR PHOSPHATE 75 MG CAP PO SCH (11:58)
[2017-07-28 13:58] LABS: INTERNATIONAL NORMALIZED RATIO 1.4 RATIO; PROTHROMBIN TIME - PATIENT 13.9 SEC (9.8-11.6)
[2017-07-28 14:09] LABS: ALBUMIN 3.1 GM/DL (3.4-5.0); AST (GOT) 41 U/L (15-37); BICARBONATE 23.8 MEQ/L (21.0-32.0); BLOOD UREA NITROGEN 12 MG/DL (7-18); CALCIUM 8.3 MG/DL (8.5-10.1); CHLORIDE 110 MEQ/L (98-107); CREATININE 0.73 MG/DL (0.50-1.00); GLOMERULAR FILTRATION RATE 78 ML/MIN (>89); GLUCOSE,RANDOM 92 MG/DL (74-106); SODIUM (NA) 143 MEQ/L (136-145)
[2017-07-28 14:12] LABS: ALKALINE PHOSPHATASE 115 U/L (45-117); ALT (GPT) 49 U/L (10-53); TOTAL BILIRUBIN ADULT 0.8 MG/DL (0.2-1.0)
[2017-07-28] MEDS ORDERED: POTASSIUM CHLORIDE 20 MEQ CONTROLLED RELEASE TAB PO ONE ×2 (16:00→18:00)
[2017-07-28 16:45] LABS: ALPHA-1-ANTITRYPSIN 175 mg/dL (100 - 190)
[2017-07-28] MEDS: WARFARIN SOD 4 MG TAB PO SCH (18:09)
[2017-07-28] MEDS: QUEtiapine FUMARATE 25 MG TAB PO SCH (21:00)
[2017-07-28] MEDS: MEMANTINE HCL 10 MG TAB PO SCH (21:37)
[2017-07-28] MEDS ORDERED: PHARMACY ORDERED LAB ONE (23:45)
[2017-07-29] VITALS (7 sets, daily range): BP systolic 125–147; BP diastolic 60–88; PULSE 62–72; RESP 18–20; TEMP 96.8–98.4; O2SAT 96–98
[2017-07-29] MEDS: PIPERACIL-TAZO 4.5 GM PREMIX 100 ML IV SCH ×4 (00:22→20:10)
[2017-07-29] MEDS: RESP: ALBUTEROL 2.5 MG/IPRATROPIUM 0.5 MG NEB (SCH) NEB ×2 (08:18→11:58)
[2017-07-29] MEDS: methylPREDNISolone SOD SUCC 40 MG/1 ML VIAL IV PUSH SCH ×2 (11:29→22:00)
[2017-07-29] MEDS: METOPROLOL TARTRATE 25 MG TAB PO SCH (11:30)
[2017-07-29] MEDS: LEVOFLOXACIN 750 MG TAB PO SCH (11:30)
[2017-07-29] MEDS: DULoxetine HCl DR 30 MG CAP PO SCH ×2 (11:30→22:00)
[2017-07-29] MEDS: MEMANTINE HCL 10 MG TAB PO SCH ×2 (11:30→22:01)
[2017-07-29] MEDS: SODIUM CHLORIDE 0.9% FLUSH 10 ML FLUSH IV FLUSH SCH ×2 (11:31→22:02)
[2017-07-29 12:58] LABS: INTERNATIONAL NORMALIZED RATIO 1.1 RATIO; PROTHROMBIN TIME - PATIENT 11.4 SEC (9.8-11.6)
--- NOTE | 2017-07-29 14:02 | HHI.PR ---
Subjective Remarks Patient in bed, pleasantly confused and anxious. Denies chest pain. Says she feels sob. No fever or chills, but says she is feeling cold. No cough or wheezing. Objective Vitals Vital Signs Date Time Temp Pulse Resp B/P (MAP) Pulse Ox O2 Delivery O2 Flow Rate FiO2 07/29/17 12:53 98.2 68 20 128/60 (82) 98 07/29/17 08:58 97.9 18 125/80 (95) 98 07/29/17 08:18 96 21 07/29/17 00:00 96.8 62 20 127/88 (101) 97 07/28/17 20:00 96.5 62 20 127/88 (101) 93 07/28/17 19:32 94 21 I/O 07/28/17 07/28/17 07/28/17 07/29/17 07/29/17 07/29/17 07:00 15:00 23:00 07:00 15:00 23:00 Intake Total 330 ml Balance 330 ml Intake Oral 330 ml # Voids 3 # Bowel Movements 2 Result Diagram: 07/27/17 1528 07/28/17 1217 Imaging Last Impressions Head CT 07/25/17 0134 Signed Impressions: Service Date/Time: Tuesday, July 25, 2017 02:03 - CONCLUSION: 1. No evidence of acute intracranial pathology. Chronic ischemic changes as above. 2. Sinus disease as above Ezequiel Ordoñez MD Chest X-Ray 07/25/17 0134 Signed Impressions: Service Date/Time: Tuesday, July 25, 2017 02:01 - CONCLUSION: 1. Cardiomegaly. No acute pulmonary disease. Ezequiel Ordoñez MD Liver Ultrasound 07/25/17 0000 Signed Impressions: Service Date/Time: Tuesday, July 25, 2017 09:34 - CONCLUSION: Possible early portal hypertension with sluggish portal flow. No intrahepatic biliary duct dilatation. Miguelito Mcgovern MD FACR Chest CT 07/25/17 0000 Signed Impressions: Service Date/Time: Tuesday, July 25, 2017 04:40 - CONCLUSION: 1. Possible right hilar mass. PET/CT and. bronchoscopy could be considered. 2. Bronchiectasis in both bases with bibasilar alveolar opacity inflammatory or infectious Ezequiel Ordoñez MD Objective Remarks GENERAL: , in no apparent distress.- on wrist restraints. CARDIOVASCULAR: Regular rate and regular rhythm without murmurs, gallops, or rubs. RESPIRATORY: bilateral wheezing seems to be improving. GASTROINTESTINAL: Abdomen soft, non-tender, nondistended. Normal, active bowel sounds MUSCULOSKELETAL: Extremities without clubbing, cyanosis, or edema. NEURO: awake and alert but not oriented to time or place. A/P Assessment and Plan Right hilar mass on bibasilar infiltrate possibly HCHP continue with IV antibiotics, neb treatment and IV steroids. pulmonary consult appreciated; recommended repeat CT chest in four weeks. Increase transaminase AST/ALT - trending down-will monitor LFT's. hepatitis panel negative. GI consult appreciated. UTI- on antibiotic- UC with e-coli. History of CAD patient has an AICD with pacemaker/ A. fib on Coumadin INR supratherpaeutic- coumadin held, resatrt coumadin as INR is low now - continue to monitor INR. Consult pharmacy for INR Hypertension: continue metoprolol. mOnitor BP and adjust meds as need. History of CVA: continue coumadin DVT prophylaxis; on coumadin PT consulted. Discharge Planning DC to SNF when stable, still agitated and requiring restraints. Krystin William MD Jul 29, 2017 14:02
[2017-07-29] MEDS: OSELTAMIVIR PHOSPHATE 75 MG CAP PO SCH (16:44)
[2017-07-29] MEDS: WARFARIN SOD 4 MG TAB PO SCH (16:44)
[2017-07-29] MEDS ORDERED: 1/2 NS + KCL 20 MEQ INJ 1,000 ML IV SCH (20:00)
[2017-07-29] MEDS ORDERED: POTASSIUM CHLORIDE 10 MEQ CONTROLLED RELEASE TAB PO ONE (20:00)
[2017-07-29] MEDS: QUEtiapine FUMARATE 25 MG TAB PO SCH (22:01)
[2017-07-30] MEDS: PIPERACIL-TAZO 4.5 GM PREMIX 100 ML IV SCH ×2 (03:02→07:52)
[2017-07-30 03:54] VITALS: BP 139/64; PULSE 64; RESP 18; TEMP 98.4; O2SAT 97
[2017-07-30 07:09] VITALS: BP 148/67; PULSE 62; RESP 20; TEMP 98; O2SAT 98
[2017-07-30 08:27] LABS: INTERNATIONAL NORMALIZED RATIO 1.1 RATIO; PROTHROMBIN TIME - PATIENT 11.4 SEC (9.8-11.6)
[2017-07-30 08:32] LABS: AUTOMATED NEUTROPHIL # 5.9 TH/MM3 (1.8-7.7); HEMATOCRIT 34.2 % (35.0-46.0); HEMOGLOBIN 11.7 GM/DL (11.6-15.3); LYMPH % 17.7 % (9.0-44.0); LYMPHOCYTE # 1.4 TH/MM3 (1.0-4.8); MEAN CELL VOLUME 88.9 FL (80.0-100.0); MEAN CORPUSCULAR HEMOGLOBIN 30.5 PG (27.0-34.0); MEAN CORPUSCULAR HGB CONC 34.3 % (32.0-36.0); MEAN PLATELET VOLUME 8.8 FL (7.0-11.0); MONO % 6.6 % (0.0-8.0); MONOCYTE # 0.5 TH/MM3 (0-0.9); NEUT % 75.7 % (16.0-70.0); PLATELET COUNT 262 TH/MM3 (150-450); RED BLOOD COUNT 3.84 MIL/MM3 (4.00-5.30); RED CELL DISTRIBUTION WIDTH 13.6 % (11.6-17.2); WHITE BLOOD COUNT 7.8 TH/MM3 (4.0-11.0)
[2017-07-30 09:00] LABS: ALBUMIN 2.9 GM/DL (3.4-5.0); ALKALINE PHOSPHATASE 91 U/L (45-117); ALT (GPT) 40 U/L (10-53); AST (GOT) 26 U/L (15-37); BICARBONATE 23.5 MEQ/L (21.0-32.0); BLOOD UREA NITROGEN 10 MG/DL (7-18); CALCIUM 8.1 MG/DL (8.5-10.1); CHLORIDE 107 MEQ/L (98-107); CREATININE 0.59 MG/DL (0.50-1.00); GLOMERULAR FILTRATION RATE 100 ML/MIN (>89); GLUCOSE,RANDOM 102 MG/DL (74-106); SODIUM (NA) 139 MEQ/L (136-145); TOTAL BILIRUBIN ADULT 0.9 MG/DL (0.2-1.0); TOTAL PROTEIN 6.4 GM/DL (6.4-8.2)
[2017-07-30] MEDS: SODIUM CHLORIDE 0.9% FLUSH 10 ML FLUSH IV FLUSH SCH (09:00)
[2017-07-30 10:09] LABS: BANDS 2 % (0-6); CORRECTED NUCLEATED RBC 1 /100 WBC (0-0); LYMPHOCYTES 20 % (9-44); MONOCYTES 6 % (0-8); NEUTROPHIL # MANUAL DIFF 5.8 TH/MM3 (1.8-7.7); NUCLEATED RED BLOOD CELL 1 (0-0); POLYS (SEG NEUTROPHILS) 72 % (16-70)
[2017-07-30] MEDS: DULoxetine HCl DR 30 MG CAP PO SCH (10:40)
[2017-07-30] MEDS: LEVOFLOXACIN 750 MG TAB PO SCH (10:40)
[2017-07-30] MEDS: MEMANTINE HCL 10 MG TAB PO SCH (10:40)
[2017-07-30] MEDS: METOPROLOL TARTRATE 25 MG TAB PO SCH (10:41)
[2017-07-30] MEDS: OSELTAMIVIR PHOSPHATE 75 MG CAP PO SCH (10:41)
[2017-07-30] MEDS: methylPREDNISolone SOD SUCC 40 MG/1 ML VIAL IV PUSH SCH (10:41)
[2017-07-30 11:19] VITALS: BP 149/68; PULSE 65; RESP 18; TEMP 97.9; O2SAT 98
--- NOTE | 2017-07-30 11:45 | HHI.DS ---
Discharge Summary Admission Date Jul 27, 2017 at 15:10 Discharge Date: Jul 30, 2017 Admitting Diagnosis AMS, UTI (1) Elevated LFTs ICD Code: R79.89 - Other specified abnormal findings of blood chemistry (2) Elevated INR ICD Code: R79.1 - Abnormal coagulation profile (3) Diverticulosis ICD Code: K57.90 - Diverticulosis of intestine, part unspecified, without perforation or abscess without bleeding (4) Anemia ICD Code: D64.9 - Anemia, unspecified (5) Urinary tract infection ICD Code: N39.0 - Urinary tract infection, site not specified Status: Acute (6) Atrial fibrillation ICD Code: I48.91 - Atrial fibrillation Status: Chronic (7) Biventricular ICD (implantable cardioverter-defibrillator) in place ICD Code: Z95.810 - Presence of automatic (implantable) cardiac defibrillator Status: Chronic Procedures none Brief History - From Admission 76 years old female brought to the ED from care home with change of mental status, on her way to the hospital patient had O2 desaturation to 88% , and ED CT of the chest showed right hilar mass with by basilar infiltrate, when I saw the patient she was about to have her 2-D echo, open eyes, she was able to mention her name but she thought we were in 2003 , she was extremely poor historian, she was able to tell me that she's been having cough and she had pain in her teeth but otherwise no further information was able to be obtained from her. Most of the history was obtained from the medical records in EMR. Also in ED she was found to have increased AST and ALT no jaundice UA was positive for eye trait and leukocytes esterase, WBC 5 CBC/BMP: 07/30/17 0650 07/30/17 0630 Significant Findings Laboratory Tests Test 07/27/17 15:28 07/28/17 12:17 07/29/17 12:00 07/30/17 06:30 Red Blood Count 3.90 MIL/MM3 (4.00-5.30) Hematocrit 34.5 % (35.0-46.0) Neutrophils (%) (Auto) 83.1 % (16.0-70.0) Neutrophils # (Auto) 9.1 TH/MM3 (1.8-7.7) Random Glucose 112 MG/DL (74-106) Albumin 3.1 GM/DL (3.4-5.0) 3.1 GM/DL (3.4-5.0) 2.9 GM/DL (3.4-5.0) Calcium Level 8.2 MG/DL (8.5-10.1) 8.3 MG/DL (8.5-10.1) 8.1 MG/DL (8.5-10.1) Alkaline Phosphatase 129 U/L (45-117) Aspartate Amino Transf (AST/SGOT) 43 U/L (15-37) 41 U/L (15-37) Alanine Aminotransferase (ALT/SGPT) 60 U/L (10-53) Potassium Level 3.0 MEQ/L (3.5-5.1) 3.0 MEQ/L (3.5-5.1) Prothrombin Time 13.9 SEC (9.8-11.6) Chloride Level 110 MEQ/L (98-107) Estimat Glomerular Filtration Rate 78 ML/MIN (>89) Test 07/30/17 06:50 Red Blood Count 3.84 MIL/MM3 (4.00-5.30) Hematocrit 34.2 % (35.0-46.0) Neutrophils (%) (Auto) 75.7 % (16.0-70.0) Neutrophils % (Manual) 72 % (16-70) Nucleated Red Blood Cells 1 /100 WBC (0-0) Imaging Last Impressions Head CT 07/25/17133 Signed Impressions: Service Date/Time: Tuesday, July 25, 2017 02:03 - CONCLUSION: 1. No evidence of acute intracranial pathology. Chronic ischemic changes as above. 2. Sinus disease as above Ezequiel Ordoñez MD Chest X-Ray 07/25/17133 Signed Impressions: Service Date/Time: Tuesday, July 25, 2017 02:01 - CONCLUSION: 1. Cardiomegaly. No acute pulmonary disease. Ezequiel Ordoñez MD Liver Ultrasound 07/25/17 0000 Signed Impressions: Service Date/Time: Tuesday, July 25, 2017 09:34 - CONCLUSION: Possible early portal hypertension with sluggish portal flow. No intrahepatic biliary duct dilatation. Miguelito Mcgovern MD FACR Chest CT 07/25/17 0000 Signed Impressions: Service Date/Time: Tuesday, July 25, 2017 04:40 - CONCLUSION: 1. Possible right hilar mass. PET/CT and. bronchoscopy could be considered. 2. Bronchiectasis in both bases with bibasilar alveolar opacity inflammatory or infectious Ezequiel Ordoñez MD PE at Discharge GENERAL: , in no apparent distress.- on wrist restraints. CARDIOVASCULAR: Regular rate and regular rhythm without murmurs, gallops, or rubs. RESPIRATORY: bilateral wheezing seems to be improving. GASTROINTESTINAL: Abdomen soft, non-tender, nondistended. Normal, active bowel sounds MUSCULOSKELETAL: Extremities without clubbing, cyanosis, or edema. NEURO: awake and alert but not oriented to time or place. Hospital Course Right hilar mass on bibasilar infiltrate possibly HCHP Switch to ceftin 500 mg po bid po , DC IV antibiotics, neb treatment tapered and DC IV steroids. pulmonary consult appreciated; recommended repeat CT chest in four weeks. Increase transaminase AST/ALT - trending down-will monitor LFT's. hepatitis panel negative. GI consult appreciated. UTI- on antibiotic- UC with e-coli. History of CAD patient has an AICD with pacemaker/ A. fib on Coumadin INR supratherpaeutic- coumadin held, resatrt coumadin as INR is low now - continue to monitor INR. Consult pharmacy for INR, subtherapeutic , bridge with lovenox Hypertension: continue metoprolol. mOnitor BP and adjust meds as need. History of CVA: continue coumadin DVT prophylaxis; on coumadin PT consulted. Discharge Planning DC to SNF, INR is subtherapeutic , bridge with lovenox. DC to SNF if takes patient bridging Coumadin with Lovenox SQ. Pt Condition on Discharge: Stable Discharge Disposition: Discharge to SNF Discharge Time: > 30 minutes Discharge Instructions DIET: Follow Instructions for: Heart Healthy Diet Speech Therapy-Diet Recommends: Pureed, [place] Thickened Liquids Activities you can perform: Regular-No Restrictions Follow up Referrals: PCP Follow-up - 1 Week with Brady Tony DO New Medications: Cefuroxime (Cefuroxime) 500 Mg Tab 500 MG PO BID for Infection for 3 Days, #6 TAB 0 Refills Enoxaparin Inj (Lovenox Inj) 60 Mg/0.6 Ml Syr 60 MG SQ Q12H for Prevent Blood Clot, #14 INJECTION Continue until INR therapeutic (2.0-3.0) for 24-48 hours, then discontinue. Levofloxacin (Levaquin) 750 Mg Tablet 750 MG PO Q24H for pneumonia, #3 TAB Continued Medications: Duloxetine DR (Duloxetine DR) 30 Mg Capdr 30 MG PO BID, #30 CAP 0 Refills Gabapentin (Gabapentin) 100 Mg Cap 100 MG PO TID, #90 CAP 0 Refills Hydrocodone-Acetaminophen ([place]als) 5 Mg-325 Mg Tab 1 TAB PO Q6H PRN for PAIN, TAB 0 Refills Memantine Er (Namenda Xr) 28 Mg Caper 28 MG PO DAILY for Alzheimer Disease, #30 CAP 0 Refills Metoprolol Tartrate (Metoprolol Tartrate) 25 Mg Tab 12.5 MG PO DAILY, #30 TAB 0 Refills Nitroglycerin SL (Nitroglycerin SL) 0.4 Mg Subl 0.4 MG SL DIRECTED PRN for CHEST PAIN, #100 TAB.SL 0 Refills ONE TABLET UNDER THE TONGUE NEEDED FOR CHEST PAIN, MAY REPEAT EVERY FIVE MINUTES FOR A TOTAL OF 3 DOSES OR CALL 911 IF NO RELIEF Polyethylene Glycol 3350 Powder (Polyethylene Glycol 3350 Powder) 17 Gram Pow 17 GM PO DAILY for Constipation, #1 BOTTLE 0 Refills Psyllium Powder (Metamucil Original Texture) 3.4 Gram/7 Gram Pow 1 SCOOP PO DAILY PRN for CONSTIPATION, CONTAINER 0 Refills 1 rounded TEASPOON in 8 oz of liquid at the first sign of irregularity. Quetiapine (Quetiapine) 50 Mg Tab 50 MG PO HS, #30 TAB 0 Refills Sennosides (Senna-Tabs) 8.6 Mg Tab 8.6 MG PO DAILY for Constipation, #30 TAB 0 Refills Warfarin (Warfarin) 5 Mg Tab 5 MG PO DAILY for Blood Clot Prevention, #30 TAB 0 Refills Discontinued Medications: Meclizine (Meclizine) 25 Mg Tab 25 MG PO TID PRN for VERTIGO, TAB 0 Refills Temazepam (Restoril) 15 Mg Cap 15 MG PO HS PRN for INSOMNIA, #30 CAP 0 Refills Krystin William MD Jul 30, 2017 11:45
--- NOTE | 2017-07-30 11:48 | HHI.PR ---
Subjective Remarks At the margin of the bed, feels much better today. No chest apin or sob.No n/v/d /c. Denies fever ro chills. Patient denies sob or wheezing. No cough. Says she wants to see her sons coming. Objective Vitals Vital Signs Date Time Temp Pulse Resp B/P (MAP) Pulse Ox O2 Delivery O2 Flow Rate FiO2 07/30/17 11:19 97.9 65 18 149/68 (95) 98 07/30/17 07:09 98.0 62 20 148/67 (94) 98 07/30/17 04:27 07/30/17 03:54 98.4 64 18 139/64 (89) 97 07/29/17 23:48 98.4 62 18 147/68 (94) 96 07/29/17 20:08 98.0 72 18 130/62 (84) 96 07/29/17 17:25 97.9 72 18 128/60 (82) 96 07/29/17 12:53 98.2 68 20 128/60 (82) 98 I/O 07/29/17 07/29/17 07/29/17 07/30/17 07/30/17 07/30/17 07:00 15:00 23:00 07:00 15:00 23:00 Intake Total 330 ml Balance 330 ml Intake Oral 330 ml # Voids 3 2 # Bowel Movements 2 Result Diagram: 07/30/17 0650 07/30/17 0630 Imaging Last Impressions Head CT 07/25/17133 Signed Impressions: Service Date/Time: Tuesday, July 25, 2017 02:03 - CONCLUSION: 1. No evidence of acute intracranial pathology. Chronic ischemic changes as above. 2. Sinus disease as above Ezequiel Ordoñez MD Chest X-Ray 07/25/17133 Signed Impressions: Service Date/Time: Tuesday, July 25, 2017 02:01 - CONCLUSION: 1. Cardiomegaly. No acute pulmonary disease. Ezequiel Ordoñez MD Liver Ultrasound 07/25/17 0000 Signed Impressions: Service Date/Time: Tuesday, July 25, 2017 09:34 - CONCLUSION: Possible early portal hypertension with sluggish portal flow. No intrahepatic biliary duct dilatation. Miguelito Mcgovern MD FACR Chest CT 07/25/17 0000 Signed Impressions: Service Date/Time: Tuesday, July 25, 2017 04:40 - CONCLUSION: 1. Possible right hilar mass. PET/CT and. bronchoscopy could be considered. 2. Bronchiectasis in both bases with bibasilar alveolar opacity inflammatory or infectious Ezequiel Ordoñez MD Objective Remarks GENERAL: , in no apparent distress.- on wrist restraints. CARDIOVASCULAR: Regular rate and regular rhythm without murmurs, gallops, or rubs. RESPIRATORY: bilateral wheezing seems to be improving. GASTROINTESTINAL: Abdomen soft, non-tender, nondistended. Normal, active bowel sounds MUSCULOSKELETAL: Extremities without clubbing, cyanosis, or edema. NEURO: awake and alert but not oriented to time or place. A/P Assessment and Plan Right hilar mass on bibasilar infiltrate possibly HCHP Switch to ceftin 500 mg po bid po , DC IV antibiotics, neb treatment tapered and DC IV steroids. pulmonary consult appreciated; recommended repeat CT chest in four weeks. Increase transaminase AST/ALT - trending down-will monitor LFT's. hepatitis panel negative. GI consult appreciated. UTI- on antibiotic- UC with e-coli. History of CAD patient has an AICD with pacemaker/ A. fib on Coumadin INR supratherpaeutic- coumadin held, resatrt coumadin as INR is low now - continue to monitor INR. Consult pharmacy for INR, subtherapeutic , bridge with lovenox Hypertension: continue metoprolol. mOnitor BP and adjust meds as need. History of CVA: continue coumadin DVT prophylaxis; on coumadin PT consulted. Discharge Planning DC to SNF, INR is subtherapeutic , bridge with lovenox. Can DC to SNF if takes patient bridginh coumadin with lovenox SQ. Krystin William MD Jul 30, 2017 11:48
[2017-07-30] MEDS ORDERED: CEFU1TAB20 PO (12:25)
[2017-07-30] MEDS ORDERED: LEVA750T9 PO (12:25)
[2017-07-30] MEDS ORDERED: ENOX60P SQ (12:25)
[2017-07-30] MEDS ORDERED: ENOXAPARIN SODIUM 60 MG/0.6 ML SYRINGE SQ SCH (13:00)
[2017-07-30 15:03] VITALS: BP 153/74; PULSE 60; RESP 18; TEMP 98; O2SAT 98
[2017-07-30] MEDS: WARFARIN SOD 4 MG TAB PO SCH (15:18)
[2017-07-30 15:20] LABS: ANA SCREEN POS (NEG)
--- NOTE | 2017-07-30 16:01 | HHI.GIFU ---
Subjective Remarks Pt sitting on side of bed eating lunch, complaining it does not taste well. No GI complaints at this time . (Brittny Rodriguez) Objective Vitals I&O Vital Signs Date Time Temp Pulse Resp B/P (MAP) Pulse Ox O2 Delivery O2 Flow Rate FiO2 07/30/17 15:03 98.0 60 18 153/74 (100) 98 07/30/17 11:19 97.9 65 18 149/68 (95) 98 07/30/17 07:09 98.0 62 20 148/67 (94) 98 07/30/17 04:27 07/30/17 03:54 98.4 64 18 139/64 (89) 97 07/29/17 23:48 98.4 62 18 147/68 (94) 96 07/29/17 20:08 98.0 72 18 130/62 (84) 96 07/29/17 17:25 97.9 72 18 128/60 (82) 96 I/O 07/29/17 07/29/17 07/29/17 07/30/17 07/30/17 07/30/17 07:00 15:00 23:00 07:00 15:00 23:00 Intake Total 330 ml Balance 330 ml Intake Oral 330 ml # Voids 3 2 # Bowel Movements 2 Laboratory Laboratory Tests Test 07/30/17 06:30 07/30/17 06:50 Blood Urea Nitrogen 10 Creatinine 0.59 Random Glucose 102 Total Protein 6.4 Albumin 2.9 Calcium Level 8.1 Alkaline Phosphatase 91 Aspartate Amino Transf (AST/SGOT) 26 Alanine Aminotransferase (ALT/SGPT) 40 Total Bilirubin 0.9 Sodium Level 139 Potassium Level 4.1 Chloride Level 107 Carbon Dioxide Level 23.5 Anion Gap 9 Estimat Glomerular Filtration Rate 100 White Blood Count 7.8 Red Blood Count 3.84 Hemoglobin 11.7 Hematocrit 34.2 Mean Corpuscular Volume 88.9 Mean Corpuscular Hemoglobin 30.5 Mean Corpuscular Hemoglobin Concent 34.3 Red Cell Distribution Width 13.6 Platelet Count 262 Mean Platelet Volume 8.8 Neutrophils (%) (Auto) 75.7 Lymphocytes (%) (Auto) 17.7 Monocytes (%) (Auto) 6.6 Eosinophils (%) (Auto) 0.0 Basophils (%) (Auto) 0.0 Neutrophils # (Auto) 5.9 Lymphocytes # (Auto) 1.4 Monocytes # (Auto) 0.5 Eosinophils # (Auto) 0.0 Basophils # (Auto) 0.0 CBC Comment AUTO DIFF Differential Total Cells Counted 100 Neutrophils % (Manual) 72 Band Neutrophils % 2 Lymphocytes % 20 Monocytes % 6 Neutrophils # (Manual) 5.8 Nucleated Red Blood Cells 1 Differential Comment FINAL DIFF MANUAL Platelet Estimate NORMAL Platelet Morphology Comment NORMAL Red Cell Morphology Comment NORMAL Prothrombin Time 11.4 Prothromb Time International Ratio 1.1 Date/Time Source Procedure Growth Status 07/25/17 10:18 Blood Peripheral Aerobic Blood Culture - Final NO GROWTH IN 5 DAYS Complete 07/25/17 10:18 Blood Peripheral Anaerobic Blood Culture - Final NO GROWTH IN 5 DAYS Complete 07/25/17 04:08 Nasal Aspirate Influenza Types A,B Antigen (VONDA) - Final NEGATIVE FOR FLU A AND B ANTIGEN.... Complete 07/25/17 01:56 Urine Random Urine Urine Culture - Final Escherichia Coli Multi-Drug Resistant Complete Imaging Last Impressions Head CT 07/25/17 0134 Signed Impressions: Service Date/Time: Tuesday, July 25, 2017 02:03 - CONCLUSION: 1. No evidence of acute intracranial pathology. Chronic ischemic changes as above. 2. Sinus disease as above Ezequiel Ordoñez MD Chest X-Ray 07/25/17 0134 Signed Impressions: Service Date/Time: Tuesday, July 25, 2017 02:01 - CONCLUSION: 1. Cardiomegaly. No acute pulmonary disease. Ezequiel Ordoñez MD Liver Ultrasound 07/25/17 0000 Signed Impressions: Service Date/Time: Tuesday, July 25, 2017 09:34 - CONCLUSION: Possible early portal hypertension with sluggish portal flow. No intrahepatic biliary duct dilatation. Miguelito Mcgovern MD FACR Chest CT 07/25/17 0000 Signed Impressions: Service Date/Time: Tuesday, July 25, 2017 04:40 - CONCLUSION: 1. Possible right hilar mass. PET/CT and. bronchoscopy could be considered. 2. Bronchiectasis in both bases with bibasilar alveolar opacity inflammatory or infectious Ezequiel Ordoñez MD Physical Exam HEENT: Normocephalic; atraumatic CHEST: Even/unlabored. CARDIAC: RRR ABDOMEN: Soft, nontender, bowel sounds active EXTREMITIES: No clubbing, cyanosis, or edema. SKIN: Normal; no rash; no jaundice. STEEL PLATE [employer]: Alert (Brittny Rodriguez) Assessment and Plan Assessment: (1) Anemia ICD Codes: D64.9 - Anemia, unspecified (2) Portal hypertension ICD Codes: K76.6 - Portal hypertension (3) Elevated LFTs ICD Codes: R79.89 - Other specified abnormal findings of blood chemistry (4) Diverticulosis ICD Codes: K57.90 - Diverticulosis of intestine, part unspecified, without perforation or abscess without bleeding (5) Elevated INR ICD Codes: R79.1 - Abnormal coagulation profile (6) Hemoptysis ICD Codes: R04.2 - Hemoptysis Plan Assessment: - Elevated LFTs- Improving. First set of LFTs (07/25) AST-256 ALT-104 Alk phos- 165 T bili 1.1. Currently (07/28) AST-43 ALT-60 Alk phos-129 T bili 0.5. Liver US (07/25) --> Possible early portal hypertension with sluggish portal flow. No intrahepatic biliary duct dilation. Hepatitis panel negative. Ammonia-11 BRE , AMA, ASMA, ceruloplasmin, celiac panel, Alpha-1 antitrypsin, iron studies pending. - Coagulopathy- INR 4.3 Vit K administered yesterday (07/30) --> LFTs improved and WNL today. INR normalized to 1.1. Pt with no GI complaints. Alpha-1 antitrypsin-175 BRE positive, Titer and pattern pending. Ceruloplasmin, ASMA, AMA, and celiac panel pending. Plan: - Liver workup pending - Avoid hepatotoxic agents - Monitor INR - Supportive care - Further recommendations to follow based on results of above Pt has been seen and examined by myself and Dr. Barr and this note is written on his behalf (Brittny Rodriguez) Physician Comments Patient seen and examined agree with above Continue with supportive care Follow up with GI post discharge (Wood Barr MD) Brittny Rodriguez Jul 30, 2017 16:01 Wood Barr MD Jul 30, 2017 19:27
[2017-07-30 16:10] LABS: SMOOTH MUSCLE TOTAL AUTOABS Negative (Negative); TRANSGLUTAMINASE IGA AB 1.5 U/mL; TRANSGLUTAMINASE IGG AB <1.2 U/mL
[2017-07-30] MEDS ORDERED: CEFUROXIME AXETIL 500 MG TAB PO SCH (21:00)
[2017-08-01 13:15] LABS: ANA PATTERN NUCLEOLAR
[2017-08-01 19:51] LABS: CERULOPLASMIN 39 mg/dL (18-53)
[2017-08-03 03:51] LABS: MITOCHONDRIAL ABS LESS THAN 20.0 U (<=20.0)
== END 2017-07-30 17:38 | DRG 194 ==
LOC: NEPE 01:22 → NEDA 04:19 → NEDH 15:51 → NEPFCDU 17:46 → OBSVTOIN 07-27 15:10
PROVIDERS: ADMIT Hospitalist; ATTEND Hospitalist
DX: J18.9 Pneumonia, unspecified organism (principal); N39.0 Urinary tract infection, site not specified; D68.9 Coagulation defect, unspecified; I42.9 Cardiomyopathy, unspecified; K76.6 Portal hypertension; F03.90 Unspecified dementia, unspecified severity, without behavioral disturbance, psychotic disturbance, mood disturbance, and anxiety; J44.0 Chronic obstructive pulmonary disease with (acute) lower respiratory infection; R04.2 Hemoptysis; R41.82 Altered mental status, unspecified; I48.91 Unspecified atrial fibrillation; I25.10 Atherosclerotic heart disease of native coronary artery without angina pectoris; E03.9 Hypothyroidism, unspecified; F32.9 Major depressive disorder, single episode, unspecified; K21.9 Gastro-esophageal reflux disease without esophagitis; I10 Essential (primary) hypertension; M19.90 Unspecified osteoarthritis, unspecified site; E78.00 Pure hypercholesterolemia, unspecified; B96.20 Unspecified Escherichia coli [E. coli] as the cause of diseases classified elsewhere; H91.90 Unspecified hearing loss, unspecified ear; R09.02 Hypoxemia; K57.90 Diverticulosis of intestine, part unspecified, without perforation or abscess without bleeding; D63.8 Anemia in other chronic diseases classified elsewhere; Z79.01 Long term (current) use of anticoagulants; Z95.810 Presence of automatic (implantable) cardiac defibrillator; Z95.2 Presence of prosthetic heart valve; Z92.3 Personal history of irradiation; Z95.0 Presence of cardiac pacemaker; Z86.73 Personal history of transient ischemic attack (TIA), and cerebral infarction without residual deficits; Z85.3 Personal history of malignant neoplasm of breast; Z95.1 Presence of aortocoronary bypass graft; Z78.1 Physical restraint status
CPT/HCPCS: 70450; 71045; 71250; 76705; 80053; 80074; 80307; 81001; 82103; 82140; 82390; 82550; 83516; 83520; 83690; 83735; 83880; 84443; 84484; 85007; 85025; 85027; 85610; 85730; 86038; 86039; 86140; 86255; 87040; 87077; 87086; 87186; 87804; 93005; 94640; 94664; 96365; 96366; 96367; 96368; 96372; 96375; 96376; G0378; G8987-GP; G8988-GP; G8996-GN; G8997-GN; J0692; J1630; J1644; J1650; J2543; J2920; J3370; J3430; J7050; P9612

== ENCOUNTER 2017-07-30 21:54 | Emergency (ER) | payer MEDICARE, OTHER ==
[~2017-07-30 21:54] MED LIST changes: +CEFU1TAB20 PO; +ENOX60P SQ; +LEVA750T9 PO
[2017-07-30 22:27] VITALS: BP 121/58; PULSE 60; RESP 18; TEMP 97.5; O2SAT 94
[2017-07-30] MEDS ORDERED: SODIUM CHLOR 0.9% 1000 ML INJ 1,000 ML IV SCH (22:30)
--- NOTE | 2017-07-30 22:39 | PD ---
HPI Chief Complaint: Medical Clearance Time Seen by Provider: 22:11 Travel History International Travel<30 days: No Contact w/Intl Traveler<30days: No Traveled to known affect area: No History of Present Illness HPI 76-year-old female was sent from local [facility] to the ED for evaluation of aggressive behavior. Patient was admitted to [facility] July 27 and discharged this morning with diagnosis of pneumonia, perihilar mass, UTI, on anticoagulation. Patient was sent back from local [facility] to the ED for for evaluation of aggressive behavior this evening. Patient denies any leg. Patient denies any chest pain or shortness of breath. Patient complains of low abdominal pain. Patient status post cholecystectomy. Patient has history of diverticulosis. Patient denies any focal weakness or numbness of extremity. Patient denies any fever chills. Patient has history of atrial fibrillation and on Coumadin. INR was elevated doing past admission. Coumadin was on hold. Patient status post biventricular ICD placement. PFSH Past Medical History Hx Anticoagulant Therapy: Yes (WARFARIN) Arthritis: Yes Asthma: No Atrial Fibrillation: Yes Autoimmune Disease: No Blood Disorders: No Anxiety: No Depression: Yes Heart Rhythm Problems: Yes (A-FIB) Cancer: Yes (LEFT BREAST) Cardiomyopathy: Yes Cardiovascular Problems: Yes (CARDIOMYOPATHY) High Cholesterol: Yes Chemotherapy: Yes Chest Pain: No Congestive Heart Failure: No COPD: Yes Cerebrovascular Accident: Yes (TIA) Diabetes: No Diminished Hearing: Yes Diverticulitis: Yes Endocrine: No Gastrointestinal Disorders: Yes (BLEEDING HEMORRHOIDS - GI SCOPE FOR POLOPS) GERD: No Glaucoma: No Genitourinary: No Headaches: Yes Hepatitis: No Hiatal Hernia: No Hypertension: Yes Immune Disorder: No Implanted Vascular Access Dvce: Yes Kidney Stones: No Musculoskeletal: Yes (ARTHRITIS) Neurologic: Yes (TIA, MENIER'S SYNDROME, VERTIGO) Psychiatric: Yes Reproductive: No Respiratory: Yes Immunizations Current: Yes Radiation Therapy: Yes Renal Failure: No Sleep Apnea: No Thyroid Disease: No Ulcer: No Menopausal: Yes : 6 Para: 6 Ectopic : Yes Past Surgical History Abdominal Surgery: Yes AICD: Yes Appendectomy: Yes Body Medical Devices: PACER/DEFIBRILLATOR Cardiac Surgery: Yes (pacemaker medtronic duel 03/22/16) Cholecystectomy: Yes Ear Surgery: No Endocrine Surgery: No Eye Surgery: Yes (LEFT EYE) Genitourinary Surgery: No Gynecologic Surgery: Yes Hysterectomy: Yes Neurologic Surgery: Yes (VEIN STRIPPING BI LAT LOWER EXTREM.) Oral Surgery: Yes (TEETH EXTRACTED) Pacemaker: Yes Thoracic Surgery: No Tonsillectomy: Yes Valve Replacement: Yes (REPAIR 06/2013) Other Surgery: Yes (lymphectomy; pacemaker) Social History Alcohol Use: No Tobacco Use: No Substance Use: No Allergies-Medications (Allergen,Severity, Reaction): Coded Allergies: codeine (Unverified Allergy, Severe, HEADACHE, 07/25/17) iodine (Unverified Allergy, Severe, MERTHIOLATE = RASH, 07/25/17) morphine (Unverified Allergy, Severe, HEART RATE DROPS, 07/25/17) potassium iodide (Unverified Allergy, Severe, MERTHIOLATE = RASH, 07/25/17) povidone-iodine (Unverified Allergy, Severe, MERTHIOLATE = RASH, 07/25/17) sodium iodide (Unverified Allergy, Severe, MERTHIOLATE = RASH, 07/25/17) sodium iodide (Unverified Allergy, Severe, MERTHIOLATE = RASH, 07/25/17) *MDRO Multi-Drug Resistant Organism (Verified Allergy, Unknown, 07/25/17) MRSA carvedilol (Unverified Allergy, Unknown, 07/25/17) enalaprilat (Unverified Allergy, Unknown, 07/25/17) procaine (Unverified Allergy, Unknown, 07/25/17) MRI PRECAUTION (Verified Adverse Reaction, Severe, PACEMAKER 06/28/17 AW, 07/25/17) MEDTRONIC PACEMAKER 06/28/17 AW Sulfa (Sulfonamide Antibiotics) (Unverified Adverse Reaction, Severe, NAUSEA/VOMITING, 07/25/17) Uncoded Allergies: METHIOLATE (Allergy, Severe, RASH, 09/13/10) Reported Meds & Prescriptions Reported Meds & Active Scripts Active Cefuroxime (Cefuroxime Axetil) 500 Mg Tab 500 Mg PO BID 3 Days Lovenox Inj (Enoxaparin Sodium) 60 Mg/0.6 Ml Syr 60 Mg SQ Q12H Continue until INR therapeutic (2.0-3.0) for 24-48 hours, then discontinue. Levaquin (Levofloxacin) 750 Mg Tablet 750 Mg PO Q24H Reported [place] (Hydrocodone-Acetaminophen) 5 Mg-325 Mg Tab 1 Tab PO Q6H PRN Nitroglycerin SL (Nitroglycerin) 0.4 Mg Subl 0.4 Mg SL DIRECTED PRN ONE TABLET UNDER THE TONGUE NEEDED FOR CHEST PAIN, MAY REPEAT EVERY FIVE MINUTES FOR A TOTAL OF 3 DOSES OR CALL 911 IF NO RELIEF Gabapentin 100 Mg Cap 100 Mg PO TID Duloxetine DR (Duloxetine HCl) 30 Mg Capdr 30 Mg PO BID Quetiapine (Quetiapine Fumarate) 50 Mg Tab 50 Mg PO HS Metamucil Original Texture (Psyllium Hydrophilic Mucilloid) 3.4 Gram/7 Gram Pow 1 Scoop PO DAILY PRN 1 rounded TEASPOON in 8 oz of liquid at the first sign of irregularity. Warfarin 5 Mg Tab 5 Mg PO DAILY Metoprolol Tartrate 25 Mg Tab 12.5 Mg PO DAILY Namenda Xr (Memantine) 28 Mg Caper 28 Mg PO DAILY Senna-Tabs (Sennosides) 8.6 Mg Tab 8.6 Mg PO DAILY Polyethylene Glycol 3350 Powder (Polyethylene Glycol) 17 Gram Pow 17 Gm PO DAILY Review of Systems General / Constitutional: No: Fever Eyes: No: Visual changes HENT: No: Headaches Cardiovascular: No: Chest Pain or Discomfort Respiratory: No: Shortness of Breath Gastrointestinal: Positive: Abdominal Pain Genitourinary: No: Dysuria Musculoskeletal: No: Pain Skin: No Rash Neurologic: No: Weakness Psychiatric: No: Depression Endocrine: No: Polydipsia Hematologic/Lymphatic: No: Easy Bruising Physical Exam Narrative GENERAL: Well-nourished, well-developed patient. SKIN: Focused skin assessment warm/dry. HEAD: Normocephalic. EYES: No scleral icterus. No injection or drainage. NECK: Supple, trachea midline. No JVD or lymphadenopathy. CARDIOVASCULAR: Regular rate and rhythm without murmurs, gallops, or rubs. RESPIRATORY: Breath sounds equal bilaterally. No accessory muscle use. Patient has diffuse rhonchi on the right lung. No wheezes. GASTROINTESTINAL: Abdomen soft, nondistended. Patient has mild tenderness on palpation lower abdomen. No rebound tenderness. No mass. MUSCULOSKELETAL: No cyanosis, or edema. BACK: Nontender without obvious deformity. No CVA tenderness. Neurologic exam: Patient's awake and alert oriented to person. Patient moves all extremity well. No obvious focal neurological deficit. Data Data Last Documented VS Vital Signs Date Time Temp Pulse Resp B/P (MAP) Pulse Ox O2 Delivery O2 Flow Rate FiO2 07/30/17 23:58 62 16 98 Room Air 07/30/17 22:27 97.5 121/58 (79) Orders Orders Complete Blood Count With Diff (07/30/17 22:24) Comprehensive Metabolic Panel (07/30/17 22:24) Prothrombin Time / Inr (Pt) (07/30/17 22:24) Act Partial Throm Time (Ptt) (07/30/17 22:24) Thyroid Stimulating Hormone (07/30/17 22:24) Chest, Single Ap (07/30/17 22:24) Iv Access Insert/Monitor (07/30/17 22:24) Ecg Monitoring (07/30/17 22:24) Oximetry (07/30/17 22:24) Sodium Chlor 0.9% 1000 Ml Inj (Ns 1000 M (07/30/17 22:30) Ct Abd/Pel W/O Iv Contrast (07/30/17 22:35) Labs Laboratory Tests Test 07/30/17 23:25 White Blood Count 11.5 TH/MM3 Red Blood Count 4.25 MIL/MM3 Hemoglobin 12.6 GM/DL Hematocrit 37.6 % Mean Corpuscular Volume 88.5 FL Mean Corpuscular Hemoglobin 29.5 PG Mean Corpuscular Hemoglobin Concent 33.4 % Red Cell Distribution Width 13.1 % Platelet Count 272 TH/MM3 Mean Platelet Volume 8.3 FL Neutrophils (%) (Auto) 72.8 % Lymphocytes (%) (Auto) 17.0 % Monocytes (%) (Auto) 9.5 % Eosinophils (%) (Auto) 0.4 % Basophils (%) (Auto) 0.3 % Neutrophils # (Auto) 8.4 TH/MM3 Lymphocytes # (Auto) 1.9 TH/MM3 Monocytes # (Auto) 1.1 TH/MM3 Eosinophils # (Auto) 0.0 TH/MM3 Basophils # (Auto) 0.0 TH/MM3 CBC Comment DIFF FINAL Differential Comment Prothrombin Time 12.4 SEC Prothromb Time International Ratio 1.2 RATIO Activated Partial Thromboplast Time 24.4 SEC Blood Urea Nitrogen 12 MG/DL Creatinine 0.75 MG/DL Random Glucose 89 MG/DL Total Protein 7.0 GM/DL Albumin 3.3 GM/DL Calcium Level 8.4 MG/DL Alkaline Phosphatase 94 U/L Aspartate Amino Transf (AST/SGOT) 27 U/L Alanine Aminotransferase (ALT/SGPT) 40 U/L Total Bilirubin 0.8 MG/DL Sodium Level 140 MEQ/L Potassium Level 3.4 MEQ/L Chloride Level 106 MEQ/L Carbon Dioxide Level 24.3 MEQ/L Anion Gap 10 MEQ/L Estimat Glomerular Filtration Rate 76 ML/MIN Thyroid Stimulating Hormone 3rd Gen 1.170 uIU/ML MDM Medical Decision Making Medical Screen Exam Complete: Yes Emergency Medical Condition: Yes Medical Record Reviewed: Yes Interpretation(s) Last Impressions Abdomen/Pelvis CT 07/30/[id number] Signed Impressions: Service Date/Time: Sunday, July 30, 2017 22:55 - CONCLUSION: 1. Colonic diverticula without inflammatory change. 2. Patchy areas of consolidation or atelectasis at the lung bases. 3. Compressive changes at L1. This was present previously. Brady Wiggins MD Chest X-Ray 07/30/[id number] Signed Impressions: Service Date/Time: Sunday, July 30, 2017 22:31 - CONCLUSION: Cardiomegaly. Clear lungs. Hubert Gracia Jr., MD 12:17 AM. CBC within normal limit. WBC 11.5. 72 neutrophil. Potassium 3.4. CMP otherwise within normal limit. INR 1.2. Differential Diagnosis Differential diagnosis including pneumonia, electrolyte abnormality, UTI, pneumonia, sepsis, psychosis. Narrative Course 76-year-old female with history of recently treated for pneumonia, UTI. Patient was brought in from local [facility] for evaluation of aggressive behavior this evening. Diagnosis Primary Impression: Pneumonia Qualified Codes: J18.9 - Pneumonia, unspecified organism Additional Impression: UTI (urinary tract infection) Qualified Codes: N30.00 - Acute cystitis without hematuria Patient Instructions: General Instructions Additional Instructions: Continue with all medication. Take Coumadin as directed. Check INR in a.m. Med/Other Pt SpecificInfo: No Change to Meds Disposition: 03 DISCHARGE TO SNF Condition: Stable Yuriy Elliott MD Jul 30, 2017 22:39
--- NOTE | 2017-07-30 22:45 | RADRPT ---
EXAM DATE/TIME: 07/30/2017 22:31 [facility] COMPARISON: CHEST SINGLE AP, July 25, 2017, 2:01. INDICATIONS : Short of breath MEDICAL HISTORY : Chronic obstructive pulmonary disease. Hypertension. Hypercholesterolemia. Cardiomyopathy. A-fib. Div erticulitis. Left breast cancer. SURGICAL HISTORY : Tonsillectomy. Pacemaker. Hysterectomy. Cholecystectomy. Lymphectomy ENCOUNTER: Initial ACUITY: 1 day PAIN SCORE: 0/10 LOCATION: Bilateral chest FINDINGS: A single portable frontal view of the chest shows mild cardiomegaly. Prosthetic heart valve and media n sternotomy wires. No pulmonary vascular engorgement. Lungs are clear. No infiltrate or effusion. Ri ght-sided pacing device. CONCLUSION: Cardiomegaly. Clear lungs. Hubert Gracia Jr., MD on July 30, 2017 at 22:42 Board Certified Radiologist. This report was verified electronically.
--- NOTE | 2017-07-30 23:29 | RADRPT ---
EXAM DATE/TIME: 07/30/2017 22:55 [facility] COMPARISON: CT ABDOMEN & PELVIS W/O CONTRAST, June 28, 2017, 19:58. INDICATIONS : Low abdomen pain. ORAL CONTRAST: No oral contrast ingested. RADIATION DOSE: 9.08 CTDIvol (mGy) MEDICAL HISTORY : Cardiovascular disease. Hypertension. Diverticulitis.COPD SURGICAL HISTORY : Pacemaker. Appendectomy.Cholecystectomy.Hysterectomy ENCOUNTER: Initial ACUITY: 1 day PAIN SCALE: 3/10 LOCATION: low abdomen TECHNIQUE: Volumetric scanning of the abdomen and pelvis was performed. Using automated exposure control and ad justment of the mA and/or kV according to patient size, radiation dose was kept as low as reasonably achievable to obtain optimal diagnostic quality images. DICOM format image data is available electro nically for review and comparison. FINDINGS: LOWER CHEST: The patient is status post sternotomy. There is a pacing device in place. There is patchy density see n at the posterior left lower lobe and medial right lower lobe likely related atelectasis or consolid ation. LIVER: Homogeneous density without lesion. There is no dilation of the biliary tree. The patient is status post cholecystectomy. SPLEEN: Normal size without lesion. PANCREAS: Within normal limits. KIDNEYS: Normal in size and shape. There is no mass, stone, or hydronephrosis. ADRENAL GLANDS: Within normal limits. VASCULAR: There is no aortic aneurysm. Atherosclerotic calcifications are seen. BOWEL/MESENTERY: There are scattered colonic diverticula especially in the sigmoid region. Significant surrounding inf lammatory change is not seen. There is a mild hiatal hernia. ABDOMINAL WALL: The abdominal wall is intact. There is air in the subcutaneous soft tissues at the left lower abdomen likely from prior injections. RETROPERITONEUM: There is no lymphadenopathy. BLADDER: No wall thickening or mass. REPRODUCTIVE: The patient is status post hysterectomy. INGUINAL: There is no lymphadenopathy or hernia. Surgical clips are seen in the inguinal regions. MUSCULOSKELETAL: There is degenerative change of the thoracic and lumbar spine. There is collapse of the L1 vertebral body. This was present on the prior exam. CONCLUSION: 1. Colonic diverticula without inflammatory change. 2. Patchy areas of consolidation or atelectasis at the lung bases. 3. Compressive changes at L1. This was present previously. Brady Wiggins MD on July 30, 2017 at 23:19 Board Certified Radiologist. This report was verified electronically.
[2017-07-30 23:37] LABS: AUTOMATED NEUTROPHIL # 8.4 TH/MM3 (1.8-7.7); BASOPHIL % 0.3 % (0.0-2.0); EOSINOPHIL % 0.4 % (0.0-4.0); HEMATOCRIT 37.6 % (35.0-46.0); HEMOGLOBIN 12.6 GM/DL (11.6-15.3); LYMPHOCYTE # 1.9 TH/MM3 (1.0-4.8); MEAN CELL VOLUME 88.5 FL (80.0-100.0); MEAN CORPUSCULAR HEMOGLOBIN 29.5 PG (27.0-34.0); MEAN CORPUSCULAR HGB CONC 33.4 % (32.0-36.0); MEAN PLATELET VOLUME 8.3 FL (7.0-11.0); MONO % 9.5 % (0.0-8.0); MONOCYTE # 1.1 TH/MM3 (0-0.9); NEUT % 72.8 % (16.0-70.0); PLATELET COUNT 272 TH/MM3 (150-450); RED BLOOD COUNT 4.25 MIL/MM3 (4.00-5.30); RED CELL DISTRIBUTION WIDTH 13.1 % (11.6-17.2); WHITE BLOOD COUNT 11.5 TH/MM3 (4.0-11.0)
[2017-07-30 23:58] VITALS: PULSE 62; RESP 16; O2SAT 98
[2017-07-31 00:02] LABS: ALBUMIN 3.3 GM/DL (3.4-5.0); ALT (GPT) 40 U/L (10-53); AST (GOT) 27 U/L (15-37); BICARBONATE 24.3 MEQ/L (21.0-32.0); BLOOD UREA NITROGEN 12 MG/DL (7-18); CALCIUM 8.4 MG/DL (8.5-10.1); CHLORIDE 106 MEQ/L (98-107); CREATININE 0.75 MG/DL (0.50-1.00); GLOMERULAR FILTRATION RATE 76 ML/MIN (>89); GLUCOSE,RANDOM 89 MG/DL (74-106); INTERNATIONAL NORMALIZED RATIO 1.2 RATIO; PROTHROMBIN TIME - PATIENT 12.4 SEC (9.8-11.6); SODIUM (NA) 140 MEQ/L (136-145)
[2017-07-31 00:12] LABS: ALKALINE PHOSPHATASE 94 U/L (45-117); TOTAL BILIRUBIN ADULT 0.8 MG/DL (0.2-1.0)
[2017-07-31 03:11] VITALS: BP 126/70; PULSE 62; RESP 20; TEMP 98; O2SAT 98
== END 2017-07-31 10:45 ==
LOC: NEPD 21:54
DX: J18.9 Pneumonia, unspecified organism (principal); N39.0 Urinary tract infection, site not specified; F32.9 Major depressive disorder, single episode, unspecified; I48.91 Unspecified atrial fibrillation; H91.90 Unspecified hearing loss, unspecified ear; J98.11 Atelectasis; I51.7 Cardiomegaly; Z79.01 Long term (current) use of anticoagulants; Z90.49 Acquired absence of other specified parts of digestive tract; Z95.0 Presence of cardiac pacemaker
CPT/HCPCS: 71045; 74176; 80053; 84443; 85025; 85610; 85730; 96360; 99285; J7030

== ENCOUNTER 2017-08-12 18:06 | Emergency (ER) | payer MEDICARE, OTHER ==
[~2017-08-12] VITALS: Ht 167.6 cm; Wt 70.0 kg
[~2017-08-12 18:06] MED LIST changes: -MECL-62 PO; -REST15CA PO
[2017-08-12] MEDS ORDERED: MELA5 PO (18:44)
[2017-08-12] MEDS ORDERED: LACT10SO PO (18:44)
[2017-08-12] MEDS ORDERED: RISP0.5T2 PO (18:44)
[2017-08-12] MEDS ORDERED: SODIUM CHLORIDE 0.9% FLUSH 10 ML FLUSH IV FLUSH PRN (19:30)
--- NOTE | 2017-08-12 19:32 | PD ---
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 Patient is alert, apparently had initially denied any issues, does not know why she was here. She apparently has recently been started on RISPERDAL TRAMADOL AND CYMBALTA. She has no complaints currently but is unclear whether she is a reliable historian. Modifying Factors: None Associated Signs & Symptoms: Disorientation, altered mental status, lethargy Risk Factors: Recent new medications PFSH Past Medical History Hx Anticoagulant Therapy: Yes (WARFARIN) Arthritis: Yes Asthma: No Atrial Fibrillation: Yes Autoimmune Disease: No Blood Disorders: No Anxiety: No Depression: Yes Heart Rhythm Problems: Yes (A-FIB) Cancer: Yes (LEFT BREAST) Cardiomyopathy: Yes Cardiovascular Problems: Yes (A FIB) High Cholesterol: Yes Chemotherapy: Yes Chest Pain: No Congestive Heart Failure: No COPD: Yes Cerebrovascular Accident: Yes (TIA) Diabetes: No Diminished Hearing: Yes Diverticulitis: Yes Endocrine: No Gastrointestinal Disorders: Yes (BLEEDING HEMORRHOIDS - GI SCOPE FOR POLOPS) GERD: No Glaucoma: No Genitourinary: No Headaches: Yes Hepatitis: No Hiatal Hernia: No Hypertension: Yes Immune Disorder: No Implanted Vascular Access Dvce: Yes Kidney Stones: No Musculoskeletal: Yes (ARTHRITIS) Neurologic: Yes (TIA, MENIER'S SYNDROME, VERTIGO) Psychiatric: Yes Reproductive: No Respiratory: Yes Immunizations Current: Yes Radiation Therapy: Yes Renal Failure: No Sleep Apnea: No Thyroid Disease: No Ulcer: No Menopausal: Yes : 6 Para: 6 Ectopic : Yes Past Surgical History Abdominal Surgery: Yes AICD: Yes Appendectomy: Yes Body Medical Devices: PACER/DEFIBRILLATOR Cardiac Surgery: Yes (pacemaker medtronic duel 03/22/16) Cholecystectomy: Yes Ear Surgery: No Endocrine Surgery: No Eye Surgery: Yes (LEFT EYE) Genitourinary Surgery: No Gynecologic Surgery: Yes Hysterectomy: Yes Insulin Pump: No Neurologic Surgery: Yes (VEIN STRIPPING BI LAT LOWER EXTREM.) Oral Surgery: Yes (TEETH EXTRACTED) Pacemaker: Yes Thoracic Surgery: No Tonsillectomy: Yes Valve Replacement: Yes (REPAIR 06/2013) Other Surgery: Yes (lymphectomy; pacemaker) Social History Alcohol Use: No Tobacco Use: No Substance Use: No Allergies-Medications (Allergen,Severity, Reaction): Coded Allergies: codeine (Unverified Allergy, Severe, HEADACHE, 08/12/17) iodine (Unverified Allergy, Severe, MERTHIOLATE = RASH, 08/12/17) morphine (Unverified Allergy, Severe, HEART RATE DROPS, 08/12/17) potassium iodide (Unverified Allergy, Severe, MERTHIOLATE = RASH, 08/12/17) povidone-iodine (Unverified Allergy, Severe, MERTHIOLATE = RASH, 08/12/17) sodium iodide (Unverified Allergy, Severe, MERTHIOLATE = RASH, 08/12/17) sodium iodide (Unverified Allergy, Severe, MERTHIOLATE = RASH, 08/12/17) *MDRO Multi-Drug Resistant Organism (Verified Allergy, Unknown, 08/12/17) MRSA carvedilol (Unverified Allergy, Unknown, 08/12/17) enalaprilat (Unverified Allergy, Unknown, 08/12/17) procaine (Unverified Allergy, Unknown, 08/12/17) MRI PRECAUTION (Verified Adverse Reaction, Severe, PACEMAKER 06/28/17 AW, 08/12/17) MEDTRONIC PACEMAKER 06/28/17 AW Sulfa (Sulfonamide Antibiotics) (Unverified Adverse Reaction, Severe, NAUSEA/VOMITING, 08/12/17) Uncoded Allergies: METHIOLATE (Allergy, Severe, RASH, 09/13/10) Reported Meds & Prescriptions Reported Meds & Active Scripts Active Reported Lactulose Liq (Lactulose) 10 Gm/15 Ml Soln 30 Ml PO Q6H PRN Risperidone 0.5 Mg Tab 0.5 Mg PO Q12HR Melatonin 5 Mg Tab 5 Mg PO HS [place] (Hydrocodone-Acetaminophen) 5 Mg-325 Mg Tab 1 Tab PO Q6H PRN Nitroglycerin SL (Nitroglycerin) 0.4 Mg Subl 0.4 Mg SL DIRECTED PRN ONE TABLET UNDER THE TONGUE NEEDED FOR CHEST PAIN, MAY REPEAT EVERY FIVE MINUTES FOR A TOTAL OF 3 DOSES OR CALL 911 IF NO RELIEF Gabapentin 100 Mg Cap 100 Mg PO TID Duloxetine DR (Duloxetine HCl) 30 Mg Capdr 30 Mg PO BID Quetiapine (Quetiapine Fumarate) 50 Mg Tab 50 Mg PO HS Metamucil Original Texture (Psyllium Hydrophilic Mucilloid) 3.4 Gram/7 Gram Pow 1 Scoop PO DAILY PRN 1 rounded TEASPOON in 8 oz of liquid at the first sign of irregularity. Warfarin 5 Mg Tab 5 Mg PO DAILY Metoprolol Tartrate 25 Mg Tab 12.5 Mg PO DAILY Namenda Xr (Memantine) 28 Mg Caper 28 Mg PO DAILY Senna-Tabs (Sennosides) 8.6 Mg Tab 8.6 Mg PO DAILY Polyethylene Glycol 3350 Powder (Polyethylene Glycol) 17 Gram Pow 17 Gm PO DAILY Review of Systems ROS Limitations: Altered Mental Status Physical Exam Narrative GENERAL: Well-developed elderly white female patient currently in no acute distress at rest. Awake, disoriented. SKIN: Focused skin assessment warm/dry. HEAD: Atraumatic. Normocephalic. EYES: Pupils equal and round. No scleral icterus. No injection or drainage. ENT: No nasal bleeding or discharge. Mucous membranes pink and moist. NECK: Trachea midline. No JVD. CARDIOVASCULAR: Regular rate and rhythm. No murmur appreciated. RESPIRATORY: No accessory muscle use. Clear to auscultation. Breath sounds equal bilaterally. GASTROINTESTINAL: Abdomen soft, mild diffuse abdominal tenderness without guarding or rebound, nondistended. Hepatic and splenic margins not palpable. MUSCULOSKELETAL: No obvious deformities. No clubbing. No cyanosis. No edema. NEUROLOGICAL: Awake and alert. No obvious cranial nerve deficits. Motor grossly within normal limits. Normal speech. PSYCHIATRIC: Appropriate mood and affect; insight and judgment poor. Data Data Orders Orders Electrocardiogram (08/12/17 19:19) Ammonia (08/12/17 19:19) Complete Blood Count With Diff (08/12/17 19:19) Comprehensive Metabolic Panel (08/12/17 19:19) Troponin I (08/12/17 19:19) Thyroid Stimulating Hormone (08/12/17 19:19) Urinalysis - C+S If Indicated (08/12/17 19:19) Blood Culture (08/12/17 19:19) Chest, Single Ap (08/12/17 19:19) Blood Glucose (08/12/17 19:19) Ecg Monitoring (08/12/17 19:19) Iv Access Insert/Monitor (08/12/17 19:19) Oximetry (08/12/17 19:19) Sodium Chloride 0.9% Flush (Ns Flush) (08/12/17 19:30) Ct Brain W/O Iv Contrast(Rout) (08/12/17 19:45) Urine Culture (08/12/17 19:50) Labs Laboratory Tests Test 08/12/17 19:50 White Blood Count 4.3 TH/MM3 Red Blood Count 3.80 MIL/MM3 Hemoglobin 11.0 GM/DL Hematocrit 33.6 % Mean Corpuscular Volume 88.4 FL Mean Corpuscular Hemoglobin 29.1 PG Mean Corpuscular Hemoglobin Concent 32.9 % Red Cell Distribution Width 14.2 % Platelet Count 162 TH/MM3 Mean Platelet Volume 9.0 FL Neutrophils (%) (Auto) 51.8 % Lymphocytes (%) (Auto) 38.7 % Monocytes (%) (Auto) 7.3 % Eosinophils (%) (Auto) 1.8 % Basophils (%) (Auto) 0.4 % Neutrophils # (Auto) 2.3 TH/MM3 Lymphocytes # (Auto) 1.7 TH/MM3 Monocytes # (Auto) 0.3 TH/MM3 Eosinophils # (Auto) 0.1 TH/MM3 Basophils # (Auto) 0.0 TH/MM3 CBC Comment DIFF FINAL Differential Comment Urine Color LIGHT-YELLOW Urine Turbidity CLEAR Urine pH 6.5 Urine Specific [place] 1.008 Urine Protein NEG mg/dL Urine Glucose (UA) NEG mg/dL Urine Ketones NEG mg/dL Urine Occult Blood NEG Urine Nitrite NEG Urine Bilirubin NEG Urine Urobilinogen LESS THAN 2.0 MG/DL Urine Leukocyte Esterase MOD Urine RBC 1 /hpf Urine WBC 13 /hpf Urine Bacteria MOD /hpf Urine Mucus FEW /lpf Microscopic Urinalysis Comment CATH-CULTURE IND Blood Urea Nitrogen 10 MG/DL Creatinine 0.59 MG/DL Random Glucose 91 MG/DL Total Protein 6.7 GM/DL Albumin 3.0 GM/DL Calcium Level 8.8 MG/DL Alkaline Phosphatase 58 U/L Aspartate Amino Transf (AST/SGOT) 18 U/L Alanine Aminotransferase (ALT/SGPT) 13 U/L Total Bilirubin 0.3 MG/DL Sodium Level 141 MEQ/L Potassium Level 3.6 MEQ/L Chloride Level 107 MEQ/L Carbon Dioxide Level 27.6 MEQ/L Anion Gap 6 MEQ/L Estimat Glomerular Filtration Rate 100 ML/MIN Ammonia LESS THAN 10 MCMOL/L Troponin I LESS THAN 0.02 NG/ML Thyroid Stimulating Hormone 3rd Gen 0.285 uIU/ML MDM Medical Decision Making Medical Screen Exam Complete: Yes Emergency Medical Condition: Yes Medical Record Reviewed: Yes Interpretation(s) Laboratory Tests Test 08/12/17 19:50 Red Blood Count 3.80 MIL/MM3 (4.00-5.30) Hemoglobin 11.0 GM/DL (11.6-15.3) Hematocrit 33.6 % (35.0-46.0) Urine Leukocyte Esterase MOD (NEG) Urine WBC 13 /hpf (0-5) Urine Bacteria MOD /hpf (NONE) Urine Mucus FEW /lpf (OCC) Albumin 3.0 GM/DL (3.4-5.0) Ammonia LESS THAN 10 MCMOL/L Troponin I LESS THAN 0.02 NG/ML Thyroid Stimulating Hormone 3rd Gen 0.285 uIU/ML (0.358-3.740) Last [address] 08/12/[id number] Signed Impressions: Service Date/Time: Saturday, August 12, 2017 20:08 - CONCLUSION: No acute intracranial abnormality. Chronic white matter changes are again noted. Brady Mckeon MD Chest X-Ray 08/12/[id number] Signed Impressions: Service Date/Time: Saturday, August 12, 2017 19:38 - CONCLUSION: No acute cardiopulmonary disease demonstrated. Brady Mckeon MD Differential Diagnosis Altered mental status: Medication side effects versus dehydration versus metabolic issues versus sepsis versus acute intracranial processes Narrative Course CAT scan of the brain did not show any signs of acute processes. Chest x-rays unremarkable. Lab work shows a UTI which I plan to treat. On reevaluation at 9 PM, she is quite awake, alert, and conversant although disoriented. My plan at this point would be to release her back to the facility. Return for new issues as needed. She may need her new medications evaluated the facility since she may also be overmedicated. Return for any worsening in symptoms as necessary. Diagnosis Primary Impression: Altered mental status Additional Impression: UTI (urinary tract infection) Med/Other Pt SpecificInfo: Prescription(s) given Scripts Nitrofurantoin Monohydrate Macrocrystals (Macrobid) 100 Mg Cap 100 MG PO BID for Infection for 7 Days, #14 CAP 0 Refills Prov: Mauricio Lundberg MD 08/12/17 Disposition: 03 DISCHARGE TO SNF Condition: Stable aMuricio Lundberg MD Aug 12, 2017 19:32
--- NOTE | 2017-08-12 19:53 | RADRPT ---
EXAM DATE/TIME: 08/12/2017 19:38 [facility] COMPARISON: CHEST SINGLE AP, July 30, 2017, 22:31. INDICATIONS : Syncope MEDICAL HISTORY : Cardiovascular disease. Hypertension. Diverticulitis.COPD SURGICAL HISTORY : CABG. Pacemaker. Appendectomy.Cholecystectomy.Hysterectomy ENCOUNTER: Initial ACUITY: 1 day PAIN SCORE: 0/10 LOCATION: chest FINDINGS: No infiltrate, effusion or pneumothorax. Heart size mildly enlarged, stable. Patient has had previous median sternotomy and valve replacement. Cardiac pacer/defibrillator again noted. CONCLUSION: No acute cardiopulmonary disease demonstrated. Brady Mckeon MD on August 12, 2017 at 19:50 Board Certified Radiologist. This report was verified electronically.
[2017-08-12 20:12] LABS: AUTOMATED NEUTROPHIL # 2.3 TH/MM3 (1.8-7.7); BASOPHIL % 0.4 % (0.0-2.0); EOSINOPHIL # 0.1 TH/MM3 (0-0.4); EOSINOPHIL % 1.8 % (0.0-4.0); HEMATOCRIT 33.6 % (35.0-46.0); LYMPH % 38.7 % (9.0-44.0); LYMPHOCYTE # 1.7 TH/MM3 (1.0-4.8); MEAN CELL VOLUME 88.4 FL (80.0-100.0); MEAN CORPUSCULAR HEMOGLOBIN 29.1 PG (27.0-34.0); MEAN CORPUSCULAR HGB CONC 32.9 % (32.0-36.0); MONO % 7.3 % (0.0-8.0); MONOCYTE # 0.3 TH/MM3 (0-0.9); NEUT % 51.8 % (16.0-70.0); PLATELET COUNT 162 TH/MM3 (150-450); RED CELL DISTRIBUTION WIDTH 14.2 % (11.6-17.2); WHITE BLOOD COUNT 4.3 TH/MM3 (4.0-11.0)
[2017-08-12 20:25] LABS: AST (GOT) 18 U/L (15-37); BICARBONATE 27.6 MEQ/L (21.0-32.0); BLOOD UREA NITROGEN 10 MG/DL (7-18); CALCIUM 8.8 MG/DL (8.5-10.1); CHLORIDE 107 MEQ/L (98-107); CREATININE 0.59 MG/DL (0.50-1.00); GLOMERULAR FILTRATION RATE 100 ML/MIN (>89); GLUCOSE,RANDOM 91 MG/DL (74-106); SODIUM (NA) 141 MEQ/L (136-145)
[2017-08-12 20:26] LABS: ALT (GPT) 13 U/L (10-53)
[2017-08-12 20:29] LABS: BACTERIA, URINE MOD /hpf; BILIRUBIN, URINE NEG (NEG); BLOOD, URINE NEG (NEG); GLUCOSE,URINE NEG (NEG); KETONE, URINE NEG (NEG); MUCUS URINE FEW /lpf (OCC); NITRITE,URINE NEG (NEG); PH, URINE 6.5 (5.0-8.5); URINE COLOR LIGHT-YELLOW (YELLW/STRAW); URINE LEUKOCYTE ESTERASE MOD (NEG)
--- NOTE | 2017-08-12 20:33 | RADRPT ---
EXAM DATE/TIME: 08/12/2017 20:08 [place] COMPARISON: CT BRAIN W/O CONTRAST, July 25, 2017, 2:03. INDICATIONS : Altered mental status. RADIATION DOSE: 56.35 CTDIvol (mGy) MEDICAL HISTORY : Stroke. Hypertension. SURGICAL HISTORY : Hysterectomy. ENCOUNTER: Initial ACUITY: 1 day PAIN SCALE: Non-responsive LOCATION: Bilateral head TECHNIQUE: Multiple contiguous axial images were obtained of the head. Using automated exposure control and adj ustment of the mA and/or kV according to patient size, radiation dose was kept as low as reasonably a chievable to obtain optimal diagnostic quality images. DICOM format image data is available electro nically for review and comparison. FINDINGS: CEREBRUM: The ventricles are normal for age. No evidence of midline shift, mass lesion, hemorrhage or acute in farction. No extra-axial fluid collections are seen. Chronic low attenuation seen in the periventric ular white matter. POSTERIOR FOSSA: The cerebellum and brainstem are intact. The 4th ventricle is midline. The cerebellopontine angle i s unremarkable. EXTRACRANIAL: The visualized portion of the orbits is intact. SKULL: The calvaria is intact. No evidence of skull fracture. CONCLUSION: No acute intracranial abnormality. Chronic white matter changes are again noted. Brady Mckeon MD on August 12, 2017 at 20:30 Board Certified Radiologist. This report was verified electronically.
[2017-08-12 20:36] LABS: ALKALINE PHOSPHATASE 58 U/L (45-117); TOTAL BILIRUBIN ADULT 0.3 MG/DL (0.2-1.0); TOTAL PROTEIN 6.7 GM/DL (6.4-8.2); TROPONIN I LESS THAN 0.02 NG/ML (0.02-0.05)
[2017-08-12] MEDS ORDERED: MACR100C2 PO (21:06)
[2017-08-12 21:09] VITALS: BP 123/60; PULSE 59; RESP 18; O2SAT 98
[2017-08-12] MEDS ORDERED: NITROFURANTOIN MONOHYD MACROCR 100 MG CAP PO ONE (21:15)
--- NOTE | 2017-08-13 18:40 | EKG ---
Date Performed: 08/12/2017 Time Performed: 19:42:26 PTAGE: 76 years EKG: ELECTRONIC VENTRICULAR PACEMAKER PREVIOUS TRACING : 07/25/2017 01.40 DOCTOR: Papa Hopson Interpretating Date/Time 08/13/2017 18:38:55
== END 2017-08-12 21:58 ==
LOC: NEPE 18:06
DX: R41.82 Altered mental status, unspecified (principal); N39.0 Urinary tract infection, site not specified; I10 Essential (primary) hypertension; I48.91 Unspecified atrial fibrillation; Z79.01 Long term (current) use of anticoagulants
CPT/HCPCS: 70450; 71045; 80053; 81001; 82140; 84443; 84484; 85025; 87040; 87077; 87086; 87186; 93005; 99285